=== PATIENT | female | born 1985 | race Caucasian/White ===

== ENCOUNTER 2021-08-10 12:41 | Outpatient (REF) | payer MEDICARE, SELFPAY ==
[2021-08-10 13:47] LABS: MANUAL DIFF FLAG NO
[2021-08-10 13:53] LABS: Basophils Absolute Auto 0.1 X10*3/uL (0.0-0.2); Basophils Percent Auto 0.7 % (0-2); Eosinophils Absolute Auto 0.3 X10*3/uL (0.0-0.4); Eosinophils Percent Auto 2.2 % (0-4); Hematocrit 41.7 % (37.0-47.0); Imm Gran Abs Auto 0.05 X10*3/uL (0.00-0.03); Imm Gran Pct Auto 0.4 % (0.0-0.4); Lymphocytes Absolute Auto 4.7 X10*3/uL (1.2-4.9); Lymphocytes Percent Auto 34.9 % (20-40); Mean Corpuscular HGB Conc 31.2 g/dl (31.0-35.0); Mean Corpuscular Hemoglobin 27.1 pg (27.0-33.0); Mean Corpuscular Volume 87.1 fL (80.0-98.0); Mean Platelet Volume 9.7 fL (9.4-12.3); Monocytes Absolute Auto 0.9 X10*3/uL (0.1-1.2); Monocytes Percent Auto 6.6 % (2-11); Neutrophils Absolute Auto 7.5 x10*3/uL (2.0-8.3); Neutrophils Percent Auto 55.2 % (45-73); Platelet Count 469 X10*3/uL (160-400); Red Blood Count 4.79 X10*6/uL (4.20-5.50); Red Cell Distribution Width 14.6 % (11.0-16.0); White Blood Count 13.6 X10*3/uL (4.8-10.8)
[2021-08-10 14:04] LABS: Alanine Aminotransferase 21 U/L (0-31); Albumin Level 4.6 g/dL (3.5-5.0); Alkaline Phosphatase 54 U/L (39-117); Anion Gap 14 (12-20); Aspartate Amino Transferase 22 U/L (5-31); Bilirubin Total 0.3 mg/dL (0.0-1.0); Blood Urea Nitrogen 15 mg/dL (9-16); Calcium 10.2 mg/dL (8.4-10.2); Carbon Dioxide 24 mmol/L (22-29); Chloride 105 mmol/L (96-108); Cholesterol 286 mg/dL; Estimated Glomerular Filt Rate > 60; Glucose Fasting 109 mg/dL (60-99); HDL Cholesterol 35 mg/dL; LDL Cholesterol Calculated 193 mg/dl; Potassium 4.8 mmol/L (3.3-5.1); Sodium 138 mmol/L (135-145); Triglycerides 290 mg/dL
[2021-08-10 14:25] LABS: Thyroid Stimulating Hormone 1.57 uIU/mL (0.32-4.0)
== END 2021-08-10 12:42 | disposition home or self-care (01) ==
LOC: HO.HMGCLDS 12:41
PROVIDERS: PCP Internal Medicine; Visit Provider Internal Medicine
DX: Z00.00 Encounter for general adult medical examination without abnormal findings (principal); E78.00 Pure hypercholesterolemia, unspecified; I10 Essential (primary) hypertension; Z72.0 Tobacco use
CPT/HCPCS: 36415; 80053; 80061; 84443; 85025

== ENCOUNTER → 2022-02-04 12:31 | Outpatient (BNVA) | payer MEDICARE, SELFPAY | PROVIDERS: PCP Internal Medicine; Visit Provider Physician Assistant | DX: G56.03 Carpal tunnel syndrome, bilateral upper limbs (principal) | CPT/HCPCS: 99202 ==

== ENCOUNTER 2022-04-10 10:21 | Outpatient (REF) | payer MEDICARE, SELFPAY ==
--- NOTE | 2022-04-10 12:11 | EMG_ITS ---
Please see scanned EMG / Nerve Conduction Report. MTDD
== END 2022-04-10 10:22 | disposition home or self-care (01) ==
LOC: HO.NEURO 10:21
PROVIDERS: PCP Internal Medicine; Visit Provider Physician Assistant
DX: R20.0 Anesthesia of skin (principal); R20.2 Paresthesia of skin
CPT/HCPCS: 95885; 95913

== ENCOUNTER 2022-07-29 10:51 | Outpatient (REF) | payer MEDICARE, SELFPAY ==
[2022-07-29 14:17] LABS: MANUAL DIFF FLAG NO
[2022-07-29 14:36] LABS: Basophils Absolute Auto 0.1 X10*3/uL (0.0-0.2); Basophils Percent Auto 0.9 % (0-2); Eosinophils Absolute Auto 0.3 X10*3/uL (0.0-0.4); Eosinophils Percent Auto 2.2 % (0-4); Hematocrit 38.1 % (37.0-47.0); Hemoglobin 11.9 g/dl (12.0-16.0); Imm Gran Abs Auto 0.06 X10*3/uL (0.00-0.03); Imm Gran Pct Auto 0.5 % (0.0-0.4); Lymphocytes Absolute Auto 3.8 X10*3/uL (1.2-4.9); Lymphocytes Percent Auto 29.5 % (20-40); Mean Corpuscular HGB Conc 31.2 g/dl (31.0-35.0); Mean Corpuscular Hemoglobin 27.7 pg (27.0-33.0); Mean Corpuscular Volume 88.8 fL (80.0-98.0); Mean Platelet Volume 10.4 fL (9.4-12.3); Monocytes Absolute Auto 0.8 X10*3/uL (0.1-1.2); Monocytes Percent Auto 6.4 % (2-11); Neutrophils Absolute Auto 7.8 x10*3/uL (2.0-8.3); Neutrophils Percent Auto 60.5 % (45-73); Platelet Count 443 X10*3/uL (160-400); Red Blood Count 4.29 X10*6/uL (4.20-5.50); Red Cell Distribution Width 14.8 % (11.0-16.0); White Blood Count 12.9 X10*3/uL (4.8-10.8)
[2022-07-29 14:52] LABS: Alanine Aminotransferase 12 U/L (0-31); Albumin Level 4.2 g/dL (3.5-5.0); Alkaline Phosphatase 48 U/L (39-117); Anion Gap 12 (12-20); Aspartate Amino Transferase 14 U/L (5-31); Bilirubin Total 0.2 mg/dL (0.0-1.0); Blood Urea Nitrogen 15 mg/dL (9-16); Calcium 9.1 mg/dL (8.4-10.2); Carbon Dioxide 24 mmol/L (22-29); Chloride 109 mmol/L (96-108); Cholesterol 108 mg/dL; Estimated Glomerular Filt Rate > 60; Glucose Random 142 mg/dL (60-115); HDL Cholesterol 30 mg/dL; LDL Cholesterol Calculated 63 mg/dl; Potassium 3.7 mmol/L (3.3-5.1); Sodium 141 mmol/L (135-145); Total Protein 6.6 g/dL (6.5-8.0); Triglycerides 77 mg/dL
[2022-07-29 15:31] LABS: Thyroid Stimulating Hormone 1.05 uIU/mL (0.32-4.0)
== END 2022-07-29 10:52 | disposition home or self-care (01) ==
LOC: HO.10HDL 10:51
PROVIDERS: Visit Provider Internal Medicine
DX: Z00.00 Encounter for general adult medical examination without abnormal findings (principal); E78.00 Pure hypercholesterolemia, unspecified; I10 Essential (primary) hypertension; J45.909 Unspecified asthma, uncomplicated
CPT/HCPCS: 36415; 80053; 80061; 84443; 85025

== ENCOUNTER 2023-03-05 11:28 | Outpatient (AMB) | payer MEDICARE, SELFPAY ==
--- NOTE | 2023-03-05 12:02 | MHC.OFFVIS ---
Intake Intake Visit Reasons: OV- EMG Review CTS B/L-Rescheduling Intake Note: Meliza 37 yr old right hand dominant presents today for her bilateral hand CTS. Last seen with Paul Pham who sent patient for an EMG study. Currently patient states she right is worse and would like to have surgery. Allergies No Known Allergies Allergy (Verified 03/05/23 12:04) HPI OV- EMG Review CTS B/L-Rescheduling HPI Details Meliza is a 37 year old right hand dominant woman who presents for a NCS review of her bilateral hand numbness. She complains of numbness in the thumb, index, and middle fingers bilaterally, R>L. She says this has worsened in the last several months. Symptoms intermittent, but daily, worse at night. 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 Review of Systems Const All systems reviewed & are unremarkable except as noted in HPI and below Physical Exam Const General: cooperative, healthy appearing and no acute distress Orientation/consciousness: patient oriented x3 HEENT Head: Yes normocephalic and Yes atraumatic Eyes EOM: EOMs intact bilaterally Resp Effort & Inspection: normal respiratory effort and able to speak in complete sentences Cardio Jugular venous distension: no JVD Skin General skin exam: turgor normal Rashes: no rashes Neuro General: patient oriented x3 Extrem Other: Evaluation of Bilateral Upper Extremity: The patient is alert, oriented, and in no acute distress Neuro: Decreased sensation in the median nerve distribution bilaterally. Normal sensation in the ulnar nerve distribution No thenar or intrinsic wasting Good APB muscle belly firing and good finger cross Vascular: Cap refill brisk ROM: She can make a fist and extend all her digits No locking or catching Skin: No lacerations or abrasions. General: No Ecchymosis. No Erythema or evidence of infection. Nerve Conduction study: Mild bilateral carpal tunnel syndrome Dr. Nichole 04/10/22 Psych Appearance: grossly normal Affect: normal affect Attitude: cooperative Assessment & Plan Assessment & Plan (1) Carpal tunnel syndrome on right: Code(s): G56.01 - Carpal tunnel syndrome, right upper limb (2) Carpal tunnel syndrome on left: Code(s): G56.02 - Carpal tunnel syndrome, left upper limb (3) Fibromyalgia: Code(s): M79.7 - Fibromyalgia Plan Assessment & Plan: 1. Right carpal tunnel syndrome, mild Symptoms intermittent, but daily, worse at night 2. Left carpal tunnel syndrome, mild Symptoms intermittent, but daily, worse at night I educated her about this condition I discussed operative and non-operative treatment options The patient would like to proceed with surgery, beginning with the right side She was fitted for bilateral wrist braces to wear at night The risks and benefits of operative treatment were discussed with the patient and the patient wishes to proceed with surgery. These risks include, but are not limited to risk of damage to blood vessels, nerves, tendons, infection, recurrence, incomplete relief of preoperative symptoms, persistent pain, possible need for further surgery and the risks associated with regional blocks and anesthesia. The plan is to take the patient to the operating room sometime in the next few weeks for the following procedures: 1. Right carpal tunnel release, under local All of the preoperative paperwork including the consent was filled out today. All the patient's questions were answered. The patient understands that they will be contacted by our complex care nurse practitioner soon to schedule this procedure She denies Diabetes, blood thinners, asthma, heart, lung, kidney issues Scribed for Jeri Lombardo MD by Micheal Malcolm medical review coordinator, on 03/05/23 at 12:10 PM, EST. Coding Level of Care Code Est Pt Level 4 (23200) Diagnoses Carpal tunnel syndrome on right G56.01 Carpal tunnel syndrome on left G56.02 Fibromyalgia M79.7
== END 2023-03-05 12:14 | disposition home or self-care (01) ==
PROVIDERS: PCP Internal Medicine; Visit Provider Orthopaedic Surgery
DX: G56.03 Carpal tunnel syndrome, bilateral upper limbs (principal); M79.7 Fibromyalgia
CPT/HCPCS: 99214

== ENCOUNTER → 2023-03-05 11:28 | Outpatient (BNVA) | payer MEDICARE, SELFPAY | PROVIDERS: PCP Internal Medicine; Visit Provider Orthopaedic Surgery | DX: G56.03 Carpal tunnel syndrome, bilateral upper limbs (principal); M79.7 Fibromyalgia | CPT/HCPCS: 99212 ==

== ENCOUNTER 2023-06-09 09:23 | Day surgery (SDC) | payer MEDICARE, MEDICAID, SELFPAY ==
[2023-06-09 10:13] VITALS: BMI 36.9
--- NOTE | 2023-06-09 11:09 | MHC.SHP ---
Pre-Procedural Eval Section A - 24 Hr Update-Section A only Date of Service: 06/09/23 The patient is an INPATIENT: No Changes since office visit: No Cold of Flu in the past 2 weeks, No New Medical Problems, No Changes in Medication and No Patient answered all questions The patient has been examined within 24 hours of the surgical procedure. The History & Physical has been completed within 30 days and I have reviewed it.: Yes Section B - Complete if H&P > 30 days Chief Complaint: Carpal tunnel syndrome, right upper limb Allergies: Allergies Allergy/AdvReac Type Severity Reaction Status Date / Time No Known Allergies Allergy Verified 03/05/23 12:04 Plan I have reviewed the history and physical and performed a pertinent physical examination on my patient. No changes have occurred unless specified. Time Spent With Patient Time: Total time managing care of this patient today ____ minutes.
--- NOTE | 2023-06-09 11:17 | W.PM.OPN ---
Operative Note Operative Note Date of Service: 06/09/23 Narrative: Preop diagnosis: 1. Right Carpal tunnel syndrome Postop diagnosis: same Procedure: 1. Right Carpal tunnel release Surgeon: Jeri Lombardo MD Anesthesia: local block using 1% lidocaine with epinephrine Findings: Thickened transverse carpal ligament. EBL: Less than 5 mL Specimens: None Complications: None Disposition: Brought to recovery room in stable condition Plan: Follow-up for 10-14 days for wound check and suture removal Indications: The patient is 37 years old, with right carpal tunnel syndrome that has been unresponsive to nonoperative management. The risks and benefits of operative treatment including but not limited to risk of damage to blood vessels, nerves, tendons, infection, persistent pain, persistent symptoms, or possible need for additional surgery were discussed with the patient and the patient wishes to proceed with surgery. Procedure: Once consent was obtained a local block was performed using a combination of 1% lidocaine with epinephrine. The patient was then brought back to the operating suite and placed on the operative table in supine position. The right upper extremity was prepped and draped in a standard surgical fashion. Once assured that we had a good block, a 2.0 cm longitudinal incision was made centered over the carpal tunnel. The incision was made through the skin to the subcutaneous tissues using a #15 blade. Dissection was made down to the level of the transverse carpal ligament with care being taken to protect the palmar cutaneous nerve. Once the transverse carpal ligament was clearly visualized, a longitudinal incision was made in the transverse carpal ligament 1st using a #15 blade, then using tenotomy scissors under direct visualization. Care was taken to look for and protect the motor branch of the median nerve when seen in this area. Once satisfied with our carpal tunnel release the wound was copiously irrigated with normal saline and hemostasis was obtained with a brief period of local pressure. The skin edges were reapproximated with some 5.0 nylon suture material and a sterile dressing was applied. The patient appears to have tolerated the procedure well and with no complications. All digits were well vascularized at the conclusion of the case.
[2023-06-09 12:41] VITALS: BP 107/57; PULSE 58; RESP 17; O2SAT 98
== END 2023-06-09 13:37 | disposition home or self-care (01) ==
PROVIDERS: PCP Internal Medicine; Visit Provider Orthopaedic Surgery
PROC: (CPT 64721; principal; 2023-06-09 10:30)
DX: G56.01 Carpal tunnel syndrome, right upper limb (principal); R20.0 Anesthesia of skin; M79.7 Fibromyalgia; E78.00 Pure hypercholesterolemia, unspecified; I10 Essential (primary) hypertension
CPT/HCPCS: 64721; J2795

== ENCOUNTER → 2023-06-09 09:23 | Outpatient (BNV) | payer MEDICARE, SELFPAY | PROVIDERS: PCP Internal Medicine; Visit Provider Orthopaedic Surgery | DX: G56.01 Carpal tunnel syndrome, right upper limb (principal) | CPT/HCPCS: 64721 ==

== ENCOUNTER 2023-06-24 11:29 | Outpatient (AMB) | payer MEDICARE, SELFPAY ==
[2023-06-24 11:44] VITALS: BMI 35.9
--- NOTE | 2023-06-24 11:44 | MHC.OFFVIS ---
Intake Vital Signs 06/24/23 11:44 Height 5 ft Weight 184 lb BMI 35.9 Intake Visit Reasons: PO-Rt CTR 06/09/23 Intake Note: Cece 37 yr old female presents today for her P/O visit for her right CTR from 06/09/23. States her symptoms are improving. Sutures removed and steri strips applied. Patient would also like to move forward with her left hand CTR. Allergies No Known Allergies Allergy (Verified 06/24/23 11:52) HPI PO-Rt CTR 06/09/23 HPI Details Meliza is a 37 year old right hand dominant woman who returns S/P right carpal tunnel release She says she is doing well and her sensation is much better. She said her left side is now bothering her more, especially at night. 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 Sutures removed and Steri-Strips applied She can make a fist and extend all her digits bilaterally Sensation is intact to the tips of all digits bilaterally Cap refill is brisk Nerve Conduction study: Mild bilateral carpal tunnel syndrome Dr. Nichole 04/10/22 Psych Appearance: grossly normal Affect: normal affect Attitude: cooperative Assessment & Plan Assessment & Plan (1) Carpal tunnel syndrome on right: Code(s): G56.01 - Carpal tunnel syndrome, right upper limb (2) Carpal tunnel syndrome on left: Code(s): G56.02 - Carpal tunnel syndrome, left upper limb (3) Fibromyalgia: Code(s): M79.7 - Fibromyalgia Plan Assessment & Plan: 1. Right carpal tunnel syndrome, S/P release DOS: 06/09/23 Pre-operative symptoms intermittent, but daily, worse at night Now with normal sensation The patient appears to be doing well post-operatively I educated her about the post-operative course I explained the signs and symptoms of infection, I discussed activity modifications, she is to lift nothing heavier than a cellphone for the next two weeks She will perform gentle ROM exercises at home She should gently massage about the incision site to reduce the risk of hypersensitivity She was given a note for work restricting her to light duty with a 2lb weight limit with her right hand for 2 weeks. She can return to full duty effective 07/07/23. She can follow up prn 2. Left carpal tunnel syndrome, mild Symptoms intermittent, but daily, worse at night I educated her about this condition I discussed operative and non-operative treatment options The patient would like to proceed with surgery The risks and benefits of operative treatment were discussed with the patient and the patient wishes to proceed with surgery. These risks include, but are not limited to risk of damage to blood vessels, nerves, tendons, infection, recurrence, incomplete relief of preoperative symptoms, persistent pain, possible need for further surgery and the risks associated with regional blocks and anesthesia. The plan is to take the patient to the operating room sometime in the next few months for the following procedures: 1. Left carpal tunnel release, under local All of the preoperative paperwork including the consent was reviewed today. All the patient's questions were answered. The patient understands that they will be contacted by our food order expediter soon to schedule this procedure She denies Diabetes, blood thinners, asthma, heart, lung, kidney issues Scribed for Jeri Lombardo MD by Micheal Malcolm, senior medical writer, on 06/24/23 at 11:55 AM, EST. Coding Level of Care Code Est Pt Level 4 (55248) Diagnoses Carpal tunnel syndrome on right G56.01 Carpal tunnel syndrome on left G56.02 Fibromyalgia M79.7
== END 2023-06-24 12:06 | disposition home or self-care (01) ==
PROVIDERS: PCP Internal Medicine; Visit Provider Orthopaedic Surgery
DX: G56.03 Carpal tunnel syndrome, bilateral upper limbs (principal); M79.7 Fibromyalgia
CPT/HCPCS: 99024

== ENCOUNTER → 2023-06-24 11:29 | Outpatient (BNVA) | payer MEDICARE, SELFPAY | PROVIDERS: PCP Internal Medicine; Visit Provider Orthopaedic Surgery | DX: Z48.02 Encounter for removal of sutures (principal); G56.03 Carpal tunnel syndrome, bilateral upper limbs; M79.7 Fibromyalgia | CPT/HCPCS: 99212 ==

== ENCOUNTER 2023-08-25 12:07 | Day surgery (SDC) | payer MEDICARE, MEDICAID, SELFPAY ==
[2023-08-25 12:30] VITALS: BP 120/71; PULSE 91; RESP 18; TEMP 36.8; O2SAT 98; BMI 37.1
--- NOTE | 2023-08-25 12:48 | MHC.SHP ---
Pre-Procedural Eval Section A - 24 Hr Update-Section A only Date of Service: 08/25/23 The patient is an INPATIENT: No Changes since office visit: No Cold of Flu in the past 2 weeks, No New Medical Problems, No Changes in Medication and No Patient answered all questions The patient has been examined within 24 hours of the surgical procedure. The History & Physical has been completed within 30 days and I have reviewed it.: Yes Section B - Complete if H&P > 30 days Chief Complaint: Carpal tunnel syndrome, left upper limb Allergies: Allergies Allergy/AdvReac Type Severity Reaction Status Date / Time No Known Allergies Allergy Verified 08/25/23 12:33 Exam Exam Comment: Left carpal tunnel syndrome Plan Diagnosis/Plan: Unchanged I have reviewed the history and physical and performed a pertinent physical examination on my patient. No changes have occurred unless specified. Time Spent With Patient Time: Total time managing care of this patient today ____ minutes.
--- NOTE | 2023-08-25 12:48 | W.PM.OPN ---
Operative Note Operative Note Date of Service: 08/25/23 Narrative: Preop diagnosis: 1. Left Carpal tunnel syndrome Postop diagnosis: same Procedure: 1. Left Carpal tunnel release Surgeon: Jeri Lombardo MD Anesthesia: local block using 1% lidocaine with epinephrine Findings: Thickened transverse carpal ligament. EBL: Less than 5 mL Specimens: None Complications: None Disposition: Brought to recovery room in stable condition Plan: Follow-up for 10-14 days for wound check and suture removal Indications: The patient is 37 years old, with left carpal tunnel syndrome that has been unresponsive to nonoperative management. The risks and benefits of operative treatment including but not limited to risk of damage to blood vessels, nerves, tendons, infection, persistent pain, persistent symptoms, or possible need for additional surgery were discussed with the patient and the patient wishes to proceed with surgery. Procedure: Once consent was obtained a local block was performed using a combination of 1% lidocaine with epinephrine. The patient was then brought back to the operating suite and placed on the operative table in supine position. The left upper extremity was prepped and draped in a standard surgical fashion. Once assured that we had a good block, a 2.0 cm longitudinal incision was made centered over the carpal tunnel. The incision was made through the skin to the subcutaneous tissues using a #15 blade. Dissection was made down to the level of the transverse carpal ligament with care being taken to protect the palmar cutaneous nerve. Once the transverse carpal ligament was clearly visualized, a longitudinal incision was made in the transverse carpal ligament 1st using a #15 blade, then using tenotomy scissors under direct visualization. Care was taken to look for and protect the motor branch of the median nerve when seen in this area. Once satisfied with our carpal tunnel release the wound was copiously irrigated with normal saline and hemostasis was obtained with a brief period of local pressure. The skin edges were reapproximated with some 5.0 nylon suture material and a sterile dressing was applied. The patient appears to have tolerated the procedure well and with no complications. All digits were well vascularized at the conclusion of the case.
[2023-08-25 15:05] VITALS: BP 118/62; PULSE 58; RESP 12; O2SAT 98
== END 2023-08-25 15:08 | disposition home or self-care (01) ==
PROVIDERS: PCP Internal Medicine; Visit Provider Orthopaedic Surgery
PROC: (CPT 64721; principal; 2023-08-25 12:50)
DX: G56.02 Carpal tunnel syndrome, left upper limb (principal); M79.7 Fibromyalgia; I10 Essential (primary) hypertension; E78.00 Pure hypercholesterolemia, unspecified; Z98.890 Other specified postprocedural states
CPT/HCPCS: 64721; J0171

== ENCOUNTER → 2023-08-25 12:07 | Outpatient (BNV) | payer MEDICARE, SELFPAY | PROVIDERS: PCP Internal Medicine; Visit Provider Orthopaedic Surgery | DX: G56.02 Carpal tunnel syndrome, left upper limb (principal) | CPT/HCPCS: 64721 ==

== ENCOUNTER 2023-09-09 10:28 | Outpatient (AMB) | payer MEDICARE, SELFPAY ==
[2023-09-09 10:40] VITALS: BMI 37.1
--- NOTE | 2023-09-09 10:40 | A.OFFVIS_ITS ---
Vital Signs 09/09/23 10:40 Height 5 ft Weight 190 lb BMI 37.1 Intake Visit Reasons: PO-Lt CTR 08/25/23 Intake Note: Meliza a 37 year old female presents today for her post operative visit s/p left CTR on 08/25/23. Patient reports she is doing well however a few days ago she noticed a milky colored discharge from her incision site. States keeping hand clean and dry. Her numbness and tingling has subsided. Sutures removed and steri strips applied. Allergies No Known Allergies Allergy (Verified 09/09/23 10:49) HPI HPI PO-Lt CTR 08/25/23: Details: Meliza is a 37 year old right hand dominant woman who returns S/P left carpal tunnel release, DOS: 08/25/23 She says she is doing well and her sensation is much better. She did notice some milky colored discharge from her incision a few days ago. She says she has been keeping her incision clean & dry, and she has been cleaning her incision with alcohol at home. 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 Sutures removed and Steri-Strips applied Minimal tenderness consistent with normal healing She can make a fist and extend all her digits Sensation is intact to the tips of all digits Cap refill is brisk Nerve Conduction study: Mild bilateral carpal tunnel syndrome Dr. Nichole 04/10/22 Psych Appearance: grossly normal Affect: normal affect Attitude: cooperative Assessment & Plan Assessment & Plan (1) Carpal tunnel syndrome on left: Code(s): G56.02 - Carpal tunnel syndrome, left upper limb Category: Medical (2) Carpal tunnel syndrome on right: Code(s): G56.01 - Carpal tunnel syndrome, right upper limb Category: Medical (3) Fibromyalgia: Code(s): M79.7 - Fibromyalgia Category: Medical Plan Assessment & Plan: 1. Left carpal tunnel syndrome, S/P release DOS: 08/25/23 Pre-operative symptoms intermittent, but daily, worse at night Now with normal sensation The patient appears to be doing well post-operatively I educated her about the post-operative course I explained the signs and symptoms of infection, if the patient develops any new or worsening erythema, drainage, pain, or warmth they should contact the clinic or attend the ED. She had an incident of milky discharge a few days ago from her incision. She has no discharge today, with no pain or erythema. I discussed activity modifications, she is to lift nothing heavier than a cellphone for the next two weeks She will perform gentle ROM exercises at home She should gently massage about the incision site to reduce the risk of hypersensitivity She was given a note for work restricting her to light duty with a 2lb weight limit with her left hand until 09/29/23. She will then return to full duty without restrictions. She can follow up prn 2. Right carpal tunnel syndrome, S/P release DOS: 06/09/23 Pre-operative symptoms intermittent, but daily, worse at night Now with normal sensation Scribed for Jeri Lombardo MD by Micheal Malcolm medical research assistant, on 09/09/23 at 11:00 AM, EST. Coding Level of Care Code Global (75306) Diagnoses Carpal tunnel syndrome on left G56.02 Carpal tunnel syndrome on right G56.01 Fibromyalgia M79.7
== END 2023-09-09 11:24 | disposition home or self-care (01) ==
PROVIDERS: PCP Internal Medicine; Visit Provider Orthopaedic Surgery
DX: G56.03 Carpal tunnel syndrome, bilateral upper limbs (principal); M79.7 Fibromyalgia
CPT/HCPCS: 99024

== ENCOUNTER → 2023-09-09 10:28 | Outpatient (BNVA) | payer MEDICARE, SELFPAY | PROVIDERS: PCP Internal Medicine; Visit Provider Orthopaedic Surgery | DX: Z48.811 Encounter for surgical aftercare following surgery on the nervous system (principal) | CPT/HCPCS: 99212 ==

== ENCOUNTER 2023-09-24 10:31 | Outpatient (REF) | payer MEDICARE, SELFPAY ==
[2023-09-24 11:37] LABS: MANUAL DIFF FLAG NO
[2023-09-24 11:42] LABS: Basophils Absolute Auto 0.1 X10*3/uL (0.0-0.2); Basophils Percent Auto 0.5 % (0-2); Eosinophils Absolute Auto 0.1 X10*3/uL (0.0-0.4); Eosinophils Percent Auto 0.4 % (0-4); Hematocrit 37.7 % (37.0-47.0); Hemoglobin 12.3 g/dl (12.0-16.0); Imm Gran Abs Auto 0.04 X10*3/uL (0.00-0.03); Imm Gran Pct Auto 0.3 % (0.0-0.4); Mean Corpuscular HGB Conc 32.6 g/dl (31.0-35.0); Mean Corpuscular Hemoglobin 28.1 pg (27.0-33.0); Mean Corpuscular Volume 86.1 fL (80.0-98.0); Monocytes Absolute Auto 0.5 X10*3/uL (0.1-1.2); Monocytes Percent Auto 4.2 % (2-11); Neutrophils Absolute Auto 8.3 x10*3/uL (2.0-8.3); Neutrophils Percent Auto 69.6 % (45-73); Platelet Count 381 X10*3/uL (160-400); Red Blood Count 4.38 X10*6/uL (4.20-5.50); Red Cell Distribution Width 13.8 % (11.0-16.0)
[2023-09-24 11:46] LABS: Estimated Average Glucose 117 mg/dL; Hemoglobin A1c % 5.7 % (<6.0)
[2023-09-24 12:09] LABS: Alanine Aminotransferase 15 U/L (0-31); Albumin Level 4.6 g/dL (3.5-5.0); Alkaline Phosphatase 46 U/L (39-117); Anion Gap 11 (12-20); Aspartate Amino Transferase 17 U/L (5-31); Bilirubin Total 0.7 mg/dL (0.0-1.0); Blood Urea Nitrogen 13 mg/dL (9-16); Calcium 9.4 mg/dL (8.4-10.2); Carbon Dioxide 22 mmol/L (22-29); Chloride 111 mmol/L (96-108); Cholesterol 144 mg/dL (<200); Estimated Glomerular Filt Rate > 60; Glucose Random 135 mg/dL (60-115); HDL Cholesterol 41 mg/dL (>40); LDL Cholesterol Calculated 91 mg/dL (<100); Potassium 3.4 mmol/L (3.3-5.1); Sodium 141 mmol/L (135-145); Triglycerides 62 mg/dL (<150)
[2023-09-24 12:25] LABS: Ferritin 7 ng/mL (10-122)
== END 2023-09-24 10:32 | disposition home or self-care (01) ==
LOC: HO.10HDL 10:31
PROVIDERS: Visit Provider Internal Medicine
DX: Z00.00 Encounter for general adult medical examination without abnormal findings (principal); I10 Essential (primary) hypertension; F32.2 Major depressive disorder, single episode, severe without psychotic features; F12.988 Cannabis use, unspecified with other cannabis-induced disorder; E78.00 Pure hypercholesterolemia, unspecified; Z13.1 Encounter for screening for diabetes mellitus; Z13.89 Encounter for screening for other disorder
CPT/HCPCS: 36415; 80053; 80061; 82728; 83036; 85025

== ENCOUNTER 2024-03-09 12:33 | Outpatient (AMB) | payer MEDICARE, SELFPAY ==
[2024-03-09 12:46] VITALS: BMI 37.1
--- NOTE | 2024-03-09 12:46 | A.OFFVIS_ITS ---
Vital Signs 03/09/24 12:46 Height 5 ft Weight 190 lb BMI 37.1 Intake Visit Reasons: OV-B/L hand Limited ROM/numbness, tingling Intake Note: Meliza is a 38 year old right hand dominant female who presents today for a follow up visit for left hand limited ROM with her thumb. She is S/P Left carpal tunnel release, DOS: 08/25/23, S/p Right carpal tunnel syndrome, DOS: 06/09/23. States her numbness and tingling have improved significantly since surgery. She is now having left hand thumb pain( base of joint) . States she has soreness, difficulty grabbing and pinching. NO past injection or injury. 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 No recent xrays done. Allergies No Known Allergies Allergy (Verified 03/09/24 12:54) HPI HPI OV-B/L hand Limited ROM/numbness, tingling: Details: Meliza is a 38 year old right hand dominant woman who returns with complaints of new left thumb pain. She complains of pain at the base of her left thumb, worse with pinching & gripping activities. She also says her skin is very sensitive and is painful to the touch. She has a Hx of bilateral carpal tunnel releases, and says her sensation is now normal to the tips of her fingers, but she says she has occasional tingling to the tip of her left thumb. She also complains of a painful burning sensation over the dorsal aspect of her right hand MCP joints She has Fibromyalgia. 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 Review of Systems Const All systems reviewed & are unremarkable except as noted in HPI and below Physical Exam Vital Signs: BMI result Body Mass Index 37.1 Const General: no acute distress and alert Orientation/consciousness: patient oriented x3 Neuro General: patient oriented x3 Extrem Other: Evaluation of Bilateral Upper Extremity: The patient is alert, oriented, and in no acute distress Neuro: Median, Ulnar, Radial nerves motor and sensory intact and sensation is normal to the tips of all digits, except for some numbness to the tip of the left thumb Vascular: Cap refill brisk ROM: She can make a fist and extend all her digits No locking or catching of the left thumb She complains of pain to the thenar aspect & volar aspect of the thumb MCP joint mild hypersenstivity over the carpal tunnel incision and thenar mass of the left thumb Most tender over the thumb a1 sara She is also tender along the flexor tendon, deep within the thenar mass No tenderness over the 1st dorsal compartment Tender over the radial basal joint The skin over the thenar mass has normal sensation, ust hypersensitivity Right hand: She complains of a burning sensation to light touch over the MCP joints of her fingers Normal sensation otherwise to the dorsal aspect of the hand No swelling or erythema Normal ROM Psych Appearance: grossly normal Affect: normal affect Attitude: cooperative Assessment & Plan Assessment & Plan (1) Left hand pain: Code(s): M79.642 - Pain in left hand Category: Medical (2) Hypersensitivity: Code(s): T78.40XA - Allergy, unspecified, initial encounter Category: Medical (3) Fibromyalgia: Code(s): M79.7 - Fibromyalgia Category: Medical Plan Assessment & Plan: 1. Left thumb pain & tenderness over the a1 sara No locking or catching 2. Left hand hypersensitivity Over the carpal tunnel incision & thenar mass Of note, she does have Fibromyalgia I educated her about these conditions I discussed activity modification, she should touch & massage about the base of her thumb in order to reduce her hypersensitivity I ordered OT hand therapy to work on desensitiation, stretching, & ROM She can follow up prn, at least 6-8 weels 3. Right hand episodes of pain over the dorsal aspect of the MCP joints Etiology unclear No swelling or erythema 4. Left carpal tunnel syndrome, S/P release DOS: 08/25/23 Pre-operative symptoms intermittent, but daily, worse at night Now with normal sensation 5. Right carpal tunnel syndrome, S/P release DOS: 06/09/23 Pre-operative symptoms intermittent, but daily, worse at night Now with normal sensation to the tips of her fingers Scribed for Jeri Lombardo MD by Micheal Malcolm, medical territory manager, on 03/09/24 at 1:05 PM, EST. Orders: Orders OT Evaluation and Treatment Today M79.642 - Pain in left hand, T78.40XA - Allergy, unspecified, initial encounter Scribe Plan - Not visible on output: Scribed for Jeri Lombardo MD by Micheal Malcolm, medical territory manager, on [ ] at [ ], EST. Coding Level of Care Code Est Pt Level 4 (80463) Diagnoses Left hand pain M79.642 Hypersensitivity T78.40XA Fibromyalgia M79.7
== END 2024-03-09 13:21 | disposition home or self-care (01) ==
PROVIDERS: PCP Internal Medicine; Visit Provider Orthopaedic Surgery
DX: M79.642 Pain in left hand (principal); T78.40XA Allergy, unspecified, initial encounter; M79.7 Fibromyalgia
CPT/HCPCS: 99214

== ENCOUNTER → 2024-03-09 12:33 | Outpatient (BNVA) | payer MEDICARE, SELFPAY | PROVIDERS: PCP Internal Medicine; Visit Provider Orthopaedic Surgery | DX: M79.642 Pain in left hand (principal); M79.641 Pain in right hand; M79.7 Fibromyalgia; R20.0 Anesthesia of skin; R20.2 Paresthesia of skin; T78.40XA Allergy, unspecified, initial encounter; Z98.890 Other specified postprocedural states | CPT/HCPCS: 99212 ==

== ENCOUNTER 2024-03-23 11:28 | Outpatient (AMB) | payer MEDICARE, SELFPAY ==
--- NOTE | 2024-03-23 11:47 | MHC.OFFVIS ---
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 it started few months ago and is getting worse no other associated symptoms. 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 Female Reproductive History Menstrual Date of last menstrual period: 03/21/24 Review of Systems Const All systems reviewed & are unremarkable except as noted in HPI and below Card Reports as per HPI Resp Reports as per HPI GI Reports as per HPI and Reports no additional complaints Reports as per HPI Physical Exam Const General: cooperative, healthy appearing and comfortable Chest Chest palpation & inspection: normal inspection of the chest and normal palpation of entire chest wall Breast/axilla inspection: normal inspection of the breasts and normal inspection of the axillae Breast/axilla palpation: normal palpation of the breasts, normal palpation of the axillae and no axillary lymphadenopathy Resp Effort & Inspection: normal respiratory effort Auscultation: clear to auscultation bilaterally Percussion: percussion normal Cardio Palpation: normal PMI Rate: regular rate Rhythm: regular rhythm Heart sounds: no murmurs and no rubs Peripheral pulses: Peripheral pulses 2+ throughout GI Inspection: Yes normal to inspection Palpation (GI): Soft to palpation, nontender, no guarding, not rigid and No hepatosplenomegaly present Percussion: Yes normal to percussion Auscultation: normal bowel sounds Rectal Exam - Female: deferred General: Yes bladder normal to palpation External Female Exam: No lesion Speculum Exam - Vagina: normal appearance of the vagina, normal palpation, normal vaginal discharge and not erythematous Speculum Exam - Cervix: normal appearance of the cervix and normal palpation Bimanual exam- vagina & uterus: normal bimanual exam, normal palpation, uterine size normal, bladder normal to palpation, consistency normal and normal palpation Bimanual Exam- Adnexa, other: normal adnexae, no masses and no tenderness Assessment & Plan Assessment & Plan (1) Abnormal uterine bleeding (AUB): Code(s): N93.9 - Abnormal uterine and vaginal bleeding, unspecified Category: Medical Plan: Co testing done, GC and chlamydia taken CBC, TSH, prolactin, HCG, and pelvic ultrasound ordered. Discussed with the patient the different causes of abnormal bleeding including thyroid disorders, uterine and ovarian pathology, endometrial hyperplasia, carcinoma and other potential causes. Discussed with the patient the work up including CBC (to r/o anemia), TSH, prolactin, pelvic Ultrasound, endometrial biopsy to r/o endometrial pathology. All questions answered and the patient verbalized understanding. Instructed the patient to schedule an appointment for an endometrial biopsy in 2 weeks. Orders: Orders Complete Blood Count no Diff Today N93.9 - Abnormal uterine and vaginal bleeding, unspecified US pelvic and transvaginal Today N93.9 - Abnormal uterine and vaginal bleeding, unspecified TSH reflex Free T4 Today N93.9 - Abnormal uterine and vaginal bleeding, unspecified HCG Quantitative Today N93.9 - Abnormal uterine and vaginal bleeding, unspecified Coding Level of Care Code New Pt Level 3 (69755) Diagnoses Abnormal uterine bleeding (AUB) N93.9
== END 2024-03-23 12:00 | disposition home or self-care (01) ==
PROVIDERS: PCP Internal Medicine; Visit Provider Obstetrics & Gynecology
DX: N93.9 Abnormal uterine and vaginal bleeding, unspecified (principal)
CPT/HCPCS: 99203

== ENCOUNTER 2024-03-23 11:28 | Outpatient (REF) | payer MEDICARE, SELFPAY ==
[2024-03-24 11:10] LABS: HPV 16,18/45 See PAP report
[2024-03-24 12:02] LABS: CT PCR NOT DETECTED (Not Detect.); NG PCR NOT DETECTED (Not Detect.)
== END 2024-03-23 11:29 | disposition home or self-care (01) ==
LOC: HO.LNP 11:28
PROVIDERS: PCP Internal Medicine; Visit Provider Obstetrics & Gynecology
DX: N93.9 Abnormal uterine and vaginal bleeding, unspecified (principal)
CPT/HCPCS: 87491; 87591; 87624; 88175; 99202

== ENCOUNTER 2024-04-06 13:44 | Outpatient (REF) | payer MEDICARE, SELFPAY ==
--- NOTE | ~2024-04-06 | US_ITS ---
CLINICAL HISTORY: N93.9 - Abnormal uterine and vaginal bleeding, unspecified US pelvis transabdominal and transvaginal with color and duplex Doppler Comparison: None Findings: Transabdominal scanning performed for overall anatomy. Transvaginal scanning performed for additional detail. LMP: Two weeks ago Anteverted uterus, normal size and echotexture, measuring 11.3 x 3.2 x 3.5 cm. Well defined endometrium, measuring 4.0 mm in thickness. The right ovary measures, 3.4 x 1.6 x 1.6 cm. Normal sonographic appearance right ovary. The left ovary measures, 4.1 x 3.1 x 4.6 cm. Probable hemorrhagic cyst measuring 3.3 x 2.6 x 2.4 cm. Normal color Doppler with normal ovarian arterial spectral tracing. No adnexal masses or fluid collections. No free fluid Impression: 1. Normal uterus. 2. Normal thickness endometrium homogeneous and well-defined. 3. Normal sonographic appearance right ovary. 4. Probable hemorrhagic cyst left ovary. Consider follow-up ultrasound in 6 or 12 weeks time. This document has been electronically signed by: Jose A Clark MD on 04/07/2024 09:50:44
== END 2024-04-06 13:45 | disposition home or self-care (01) ==
LOC: HO.US 13:44
PROVIDERS: PCP Internal Medicine; Visit Provider Obstetrics & Gynecology
DX: N93.9 Abnormal uterine and vaginal bleeding, unspecified (principal)
CPT/HCPCS: 76830; 76856

== ENCOUNTER → 2024-04-06 13:47 | Outpatient (BNV) | payer MEDICARE, SELFPAY | PROVIDERS: PCP Internal Medicine; Visit Provider Radiology Diagnostic Radiology | DX: N83.292 Other ovarian cyst, left side (principal); N93.9 Abnormal uterine and vaginal bleeding, unspecified | CPT/HCPCS: 76830; 76856 ==

== ENCOUNTER 2024-05-07 11:29 | Outpatient (RCR) | payer MEDICARE, SELFPAY ==
--- NOTE | 2024-04-23 11:05 | MHC.OT.EP ---
[address] [phone] Occupational Therapy Plan of Care Patient Name: Meliza Lockhart Date of Evaluation: 04/23/24 Diagnosis: L hand pain Pain Location: 0/10 at rest Pain Score: 6 Pain Scale Used: Numeric (0 - 10) Aggravating Factors: repetitive movements Alleviating Factors: Rest periods Assessment: Pt is a 38 yr. old R hand dominant female who had CTR surgery on her L wrist in 08/2023. She continues to report pain in her L had/ wrist due to jamming it shortly after her surgery. She reports falling and using her L hand to catch her fall at the end of November. 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 She has recently noted/ reported triggering of her L thumb and it gets stuck w/ overuse. She presents today w/ pain and limited ROM (flex/ ext, abduction) of her thumb as well as weakness of head scorer, and a triggering effect She saw the MD who referred her to skilled OT therapy for increased pain free ROM, strength, and functional use of her L hand/ thumb. Frequency and Duration: The patient will be seen 1x a week for 4 weeks Short Term Goals: see below Group Home Goals: Pt will be compliant w/ orthoses wear/care Pt will be able to PAIN FREE oppose the distal tip of her thumb to the base of her SF Pt will be complaint w/ joint protection techniques Pt will deny triggering of her L thumb Treatment Plan: Therapeutic Exercise Therapeutic Activity Home Exercise Program Splinting Neuro Re-ed Patient Education Desensitization/Sensory Re-ed Edema Control ADL Training Ultrasound NMES Iontophoresis Paraffin Fluidotherapy MHP Cold Packs Joint Mobilization Soft Tissue Mobilization Kinesiotaping Other (see comments) Electronically Signed By: Sharon Madrigal OTR/L Please Sign and return to therapist. Thank you once again for your referral.
== END 2024-07-09 14:47 | disposition home or self-care (01) ==
LOC: HO.OT 11:29
PROVIDERS: PCP Internal Medicine; Visit Provider Orthopaedic Surgery
DX: M79.642 Pain in left hand (principal)
CPT/HCPCS: 29130; 97110; 97140; 97165; 97535; 97760

== ENCOUNTER 2024-05-19 08:37 | Outpatient (AMB) | payer MEDICARE, SELFPAY ==
[2024-05-19 08:48] VITALS: BMI 37.1
--- NOTE | 2024-05-19 08:48 | A.OFFVIS_ITS ---
Vital Signs 05/19/24 08:48 Height 5 ft Weight 190 lb BMI 37.1 Intake Visit Reasons: OV-LT thumb pain decrease ROM Intake Note: Meliza is a 38 year old right hand dominant female who presents today for a follow up visit for left hand limited ROM with her thumb. She is S/P Left carpal tunnel release, DOS: 08/25/23, S/p Right carpal tunnel syndrome, DOS: 06/09/23. States she was improving and doing well with O.T however she woke up and felt her thumb snap/pop. Its has been snapping since if she doesn't wear her splint. Allergies No Known Allergies Allergy (Verified 05/19/24 08:59) HPI HPI OV-LT thumb pain decrease ROM: Details: Meliza is a 38 year old right hand dominant woman who returns with complaints of left thumb pain. She complains of pain at the base of her left thumb, worse with pinching & gripping activities. She also says her skin is very sensitive and is painful to the touch. She says in the last few days her thumb has been snapping & popping , and the only relief she has is when wearing her splint. She has found some improvement in her hypersensitivity from attending OT, she has one more session later today scheduled. 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 She says her duties are often difficult for her due to her pain. She has a Hx of bilateral carpal tunnel releases. She has Fibromyalgia. 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 Physical Exam Vital Signs: BMI result Body Mass Index 37.1 Const General: no acute distress and alert Orientation/consciousness: patient oriented x3 Neuro General: patient oriented x3 Extrem Other: Evaluation of Left Upper Extremity: The patient is alert, oriented, and in no acute distress Neuro: Median, Ulnar, Radial nerves motor and sensory intact and sensation is normal to the tips of all digits, except for some numbness to the tip of the left thumb Vascular: Cap refill brisk ROM: She can make a fist and extend all her digits Most tender over the left thumb a1 sara Visible and palpable locking & catching of the left thumb. Mild hypersenstivity over the carpal tunnel incision No tenderness over the 1st dorsal compartment Psych Appearance: grossly normal Affect: normal affect Attitude: cooperative Assessment & Plan Assessment & Plan (1) Trigger thumb, left thumb: Code(s): M65.312 - Trigger thumb, left thumb Category: Medical (2) Left hand pain: Code(s): M79.642 - Pain in left hand Category: Medical (3) Hypersensitivity: Code(s): T78.40XA - Allergy, unspecified, initial encounter Category: Medical (4) Fibromyalgia: Code(s): M79.7 - Fibromyalgia Category: Medical Plan Assessment & Plan: 1. Left trigger thumb I educated her about this condition I discussed operative and non-operative treatment options The patient would like to proceed with surgery The risks and benefits of operative treatment were discussed with the patient and the patient wishes to proceed with surgery. These risks include, but are not limited to risk of damage to blood vessels, nerves, tendons, infection, recurrence, incomplete relief of preoperative symptoms, persistent pain, pos sible need for further surgery and the risks associated with regional blocks and anesthesia. The plan is to take the patient to the operating room sometime in the next few weeks for the following procedures: 1. Left trigger thumb release, under local All of the preoperative paperwork including the consent was reviewed today. All the patient's questions were answered. 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 She was given a note to return to work on full duty, allowed to wear her splint at work. 2. Left hand hypersensitivity Over the carpal tunnel incision Of note, she does have Fibromyalgia I educated her about these conditions She has improved somewhat with OT hand therapy I discussed activity modification, she should touch & massage about the base of her thumb in order to reduce her hypersensitivity She will continue to attend OT hand therapy to work on desensitization, stretching, & ROM 3. Right hand episodes of pain over the dorsal aspect of the MCP joints Etiology unclear No swelling or erythema 4. Left carpal tunnel syndrome, S/P release DOS: 08/25/23 Pre-operative symptoms intermittent, but daily, worse at night Now with normal sensation 5. Right carpal tunnel syndrome, S/P release DOS: 06/09/23 Pre-operative symptoms intermittent, but daily, worse at night Now with normal sensation to the tips of her fingers Scribed for Jeri Lombardo MD by Micheal Malcolm, biomedical repair technician, on 05/19/24 at 9:10 AM, EST. Orders: Orders XR hand LT min 3V Today M79.642 - Pain in left hand Scribe Plan - Not visible on output: Scribed for Jeri Lombardo MD by Micheal Malcolm, biomedical repair technician, on [ ] at [ ], EST. Coding Level of Care Code Est Pt Level 4 (57351) Diagnoses Trigger thumb, left thumb M65.312 Left hand pain M79.642 Hypersensitivity T78.40XA Fibromyalgia M79.7
--- OUTSIDE RECORDS SUMMARY | 2024-05-19 09:28 | XMS_ITS | Clinical Summary ---
Author Organization [facility] ity Address [address] [place] [address] Care Team Providers Care Computer Software Engineer Name Role Phone Verito Gaytan MD Primary Care Provider [phone] Surgical History Surgery Date Site/Laterality Comments SECTION PROCEDURE: [place] DELIVERY ONLY Medical History Medical History Date Comments Abnormal Pap smear of cervix DX: Abnormal Pap smear of cervix Family History Medical History Relation Name Comments Other: Autism Daughter 1 Brain cancer Father Lung cancer Father Relation Name Status Comments Daughter 1 Alive Daughter 2 Alive Father Mother Alive Social History Tobacco Use Types Packs/Day Years Used Date Smoking Tobacco: Every Day Cigarettes Smokeless Tobacco: Never Comments Unknown Sex and Gender Information Value Date Recorded Sex Assigned at Not on file Legal Sex Female 4:23 PM EST Gender Identity Not on file Sexual Orientation Not on file Obstetrics History Last Filed Vital Signs Vital Sign Reading Time Taken Comments Blood Pressure 138/61 11/29/2021 2:04 PM EDT Pulse 101 11/29/2021 2:04 PM EDT Temperature - - Respiratory Rate - - Oxygen Saturation - - Inhaled Oxygen Concentration - - Weight 108 kg (238 lb) 11/29/2021 2:04 PM EDT Height 152.4 cm (5') 11/29/2021 2:04 PM EDT Body Mass Index 46.48 11/29/2021 2:04 PM EDT Plan of Treatment Health Maintenance Due Date Last Done Comments DTaP,Tdap,and Td Vaccines (1 - Tdap) 10/07/2003 Hepatitis B Vaccines (1 of 3 - 19+ 3-dose series) 10/07/2003 Pneumococcal Vaccine: Pediat rics (0 to 5 Years) and At-Risk Patients (6 to 64 Years) (1 of 2 - PCV) 10/07/2003 Cervical Cancer Screening: P ap Smear 2005 Cholesterol Screening (Lipid Panel) 03/06/2022 Depression Screening 03/06/2022 HIV Screening 03/06/2022 Hepatitis C Screening 03/06/2022 Social Influencers of Health Screening 03/06/2022 COVID-19 Vaccine ( - 2023-2 5 season) 2023 Influenza Vaccine (#1) 2023 HIB Vaccines Aged Out No longer eligi ble based on patient's age to complete this topic HPV Vaccines Aged Out No longer eligi ble based on patient's age to complete this topic Hepatitis A Vaccines Aged Out No long er eligible based on patient's age to complete this topic IPV Vaccines Aged Out No longer eligi ble based on patient's age to complete this topic MMR Vaccines Aged Out No longer eligi ble based on patient's age to complete this topic Meningococcal ACWY Vaccine Aged Out N o longer eligible based on patient's age to complete this topic Meningococcal B Vacine Aged Out No lo nger eligible based on patient's age to complete this topic RSV Immunization Patients Un baldev 20 months Aged Out No longer eligible b ased on patient's age to complete this topic Varicella Vaccines Aged Out No longer eligible based on patient's age to complete this topic Care Teams Computer Software Engineer Relationship Specialty Start Date End Date Verito Gaytan MD [address] [place] [address] [place] PCP - General Internal Medicine 10/19/21
== END 2024-05-19 09:23 | disposition home or self-care (01) ==
PROVIDERS: PCP Internal Medicine; Visit Provider Orthopaedic Surgery
DX: M65.312 Trigger thumb, left thumb (principal); M79.642 Pain in left hand; T78.40XA Allergy, unspecified, initial encounter; M79.7 Fibromyalgia
CPT/HCPCS: 99214

== ENCOUNTER → 2024-05-19 08:40 | Outpatient (BNV) | payer MEDICARE, SELFPAY | PROVIDERS: Visit Provider Radiology Diagnostic Radiology | DX: M79.642 Pain in left hand (principal) | CPT/HCPCS: 73130 ==

== ENCOUNTER 2024-05-19 09:31 | Outpatient (REF) | payer MEDICARE, SELFPAY ==
--- NOTE | ~2024-05-19 | XR_ITS ---
EXAMINATION: XR HAND, LEFT CLINICAL INFORMATION: M79.642 - Pain in left hand COMPARISON: None available. TECHNIQUE: PA, lateral, and oblique views of the left hand. FINDINGS: No acute cortical disruption or malalignment. No lytic or blastic lesions. No subcutaneous emphysema. No metallic or radiopaque foreign body. There is preservation of the joint spaces. There is no subchondral cyst formation. XR/XR hand LT min 3V IMPRESSION: Normal left hand. Electronically signed by: Spenser García MD 05/19/2024 08:55 AM BIJAN MARIANO
--- OUTSIDE RECORDS SUMMARY | 2024-05-20 10:02 | XMS_ITS | Clinical Summary ---
Author Organization [facility] ity Address [address] [place] [address] Care Team Providers Care Beach Attendant Name Role Phone Verito Gaytan MD Primary Care Provider Surgical History Surgery Date Site/Laterality Comments SECTION PROCEDURE: [place] DELIVERY ONLY Medical History Medical History Date [...] age to complete this topic Care Teams Beach Attendant Relationship Specialty Start Date End Date Verito Gaytan MD [address] [place] [address] [place] PCP - General Internal Medicine 10/19/21
== END 2024-05-19 09:32 | disposition home or self-care (01) ==
LOC: HO.HOSX 09:31
PROVIDERS: Visit Provider Orthopaedic Surgery
DX: M79.642 Pain in left hand (principal); M65.312 Trigger thumb, left thumb; T78.40XA Allergy, unspecified, initial encounter; M79.7 Fibromyalgia
CPT/HCPCS: 73130; 99212

== ENCOUNTER 2024-07-08 11:01 | Day surgery (SDC) | payer MEDICARE, SELFPAY ==
[2024-07-07 10:13] VITALS: BMI 37.1
[2024-07-08 11:05] VITALS: BP 117/34; PULSE 56; RESP 18; TEMP 36.1; O2SAT 97
--- NOTE | 2024-07-08 13:52 | MHC.SHP ---
Pre-Procedural Eval Section A - 24 Hr Update-Section A only Date of Service: 07/08/24 The patient is an INPATIENT: No Changes since office visit: No Cold of Flu in the past 2 weeks, No New Medical Problems, No Changes in Medication and No Patient answered all questions The patient has been examined within 24 hours of the surgical procedure. The History & Physical has been completed within 30 days and I have reviewed it.: Yes Section B - Complete if H&P > 30 days Chief Complaint: Trigger thumb, left thumb Allergies: Allergies Allergy/AdvReac Type Severity Reaction Status Date / Time No Known Allergies Allergy Verified 05/19/24 08:59 Plan Diagnosis/Plan: Unchanged I have reviewed the history and physical and performed a pertinent physical examination on my patient. No changes have occurred unless specified. Time Spent With Patient Time: Total time managing care of this patient today ____ minutes.
--- NOTE | 2024-07-08 13:53 | W.PM.OPN ---
Operative Note Operative Note Date of Service: 07/08/24 Narrative: Operative Note Preop diagnosis: 1. Left trigger thumb Postop diagnosis: The same Procedure: 1. Left thumb A1 sara release Surgeon: Jeri Lombardo MD Monotype Setter: Jairo WALTERS Anesthesia: local block using 1% lidocaine with epinephrine Findings: No locking or catching after A1 sara release EBL: Less than 5 mL Tourniquet time: None Specimens: None Complications: None Disposition: Brought to recovery room in stable condition Plan: Follow-up for 10-14 days for wound check and suture removal Indications: The patient is 38 years old, with a left thumb trigger finger that has been unresponsive to nonoperative management. The risks and benefits of operative treatment including but not limited to risk of damage to blood vessels, nerves, tendons, infection, persistent pain, persistent symptoms, recurrence or possible need for additional surgery were discussed with the patient and the patient wishes to proceed with surgery. Procedure: Once consent was obtained a local block was performed in the preop area using a combination of 1% lidocaine with epinephrine. The patient was then brought back to the operating suite and placed on the operative table in supine position. The left upper extremity was prepped and draped in a standard surgical fashion. Once assured that we had a good block, a 1.5 cm oblique incision was made centered over the A1 sara of the left thumb . The incision was made through the skin to the subcutaneous tissues using a #15 blade. Careful dissection was made down to the level of the A1 sara using tenotomy scissors, with care being taken to protect the nearby neurovascular structures. A longitudinal incision was made in the A1 sara 1st using a #15 blade, then using tenotomy scissors under direct visualization. The A1 sara was noted to be thickened. Following our A1 sara release, we no longer saw any locking or catching of the digit with flexion and extension. Once satisfied with our A1 sara release the wound was copiously irrigated with normal saline and hemostasis was obtained with a brief period of local pressure. The skin edges were reapproximated with some 5.0 nylon suture material and a sterile dressing was applied. The patient appears to have tolerated the procedure well and with no complications. All digits were well vascularized at the conclusion of the case.
[2024-07-08 14:41] VITALS: BP 98/48; PULSE 51; RESP 16; O2SAT 96
== END 2024-07-08 14:46 | disposition home or self-care (01) ==
PROVIDERS: PCP Internal Medicine; Visit Provider Orthopaedic Surgery
PROC: (CPT 26055; principal; 2024-07-08 12:50)
DX: M65.312 Trigger thumb, left thumb (principal); M79.645 Pain in left finger(s); M79.7 Fibromyalgia; E78.00 Pure hypercholesterolemia, unspecified; I10 Essential (primary) hypertension; Z87.891 Personal history of nicotine dependence; Z98.890 Other specified postprocedural states
CPT/HCPCS: 26055; J0171; J2003

== ENCOUNTER → 2024-07-08 11:01 | Outpatient (BNV) | payer MEDICARE, SELFPAY | PROVIDERS: PCP Internal Medicine; Visit Provider Orthopaedic Surgery | DX: M65.312 Trigger thumb, left thumb (principal) | CPT/HCPCS: 26055 ==

== ENCOUNTER 2024-07-12 11:15 | Outpatient (AMB) | payer MEDICARE, SELFPAY ==
--- NOTE | 2024-07-06 09:11 | MHC.OFFVIS ---
Intake Visit Reasons: US follow up/EMB/repeat pap Allergies No Known Allergies Allergy (Verified 05/19/24 08:59) HPI Comments Details: Presenting for follow-up. Pap smear was unsatisfactory, HPV negative Pelvic ultrasound showed the following: Impression: 1. Normal uterus. 2. Normal thickness endometrium homogeneous and well-defined. 3. Normal sonographic appearance right ovary. 4. Probable hemorrhagic cyst left ovary. Consider follow-up ultrasound in 6 or 12 weeks time. 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 Review of Systems Const All systems reviewed & are unremarkable except as noted in HPI and below Reports as per HPI and Reports no additional complaints GI Reports no additional complaints Reports no additional complaints Assessment & Plan Assessment & Plan (1) Abnormal uterine bleeding (AUB): Code(s): N93.9 - Abnormal uterine and vaginal bleeding, unspecified Category: Medical Plan: EMB done, see procedure note (2) Hemorrhagic cyst of ovary: Code(s): N83.209 - Unspecified ovarian cyst, unspecified side Category: Medical Plan: Discussed with the patient the results of the ultrasound showing possible hemorrhagic cyst, repeat ultrasound ordered. Instructions given the patient to schedule ultrasound and a follow-up appointment within 2 weeks (3) Unsatisfactory cervical Papanicolaou smear: Code(s): R87.615 - Unsatisfactory cytologic smear of cervix Category: Medical Plan: Pap repeated Orders: Orders US pelvic and transvaginal Today N83.209 - Unspecified ovarian cyst, unspecified side Coding Diagnoses Abnormal uterine bleeding (AUB) N93.9 Hemorrhagic cyst of ovary N83.209 Unsatisfactory cervical Papanicolaou smear R87.615
--- NOTE | 2024-07-12 11:27 | MHC.OFFVIS ---
Intake Visit Reasons: US follow up/EMB/repeat pap Tool Radial Drill Press Set Up Operator: Tool Radial Drill Press Set Up Operator Present (Gloria) Allergies No Known Allergies Allergy (Verified 07/12/24 11:27) Is last menstrual period known: Yes Last menstrual period: 07/07/24 HPI Comments Details: Presenting for follow-up Last Pap smear in 03/30 was unsatisfactory due to insufficient squamous cells, HPV negative Pelvic ultrasound showed the following: Anteverted uterus, normal size and echotexture, measuring 11.3 x 3.2 x 3.5 cm. Well defined endometrium, measuring 4.0 mm in thickness. The right ovary measures, 3.4 x 1.6 x 1.6 cm. Normal sonographic appearance right ovary. The left ovary measures, 4.1 x 3.1 x 4.6 cm. Probable hemorrhagic cyst measuring 3.3 x 2.6 x 2.4 cm. Normal color Doppler with normal ovarian arterial spectral tracing. No adnexal masses or fluid collections. 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 hysteroscopy D&C) & the risks were discussed with the patient including but not limited: pain, uterine perforation, bleeding, infection, possible injury to bladder, bowel, ureter, possible need for blood transfusion with all its possible risks. The patient verbalized understanding all questions answered and signed consent. Urine test done in the office was negative The patient was placed into the dorsal lithotomy position; a speculum was inserted in the vagina. Using aseptic technique for the procedure, the cervix was cleansed with Betadine. The anterior lip of the cervix was grasped with a single tooth tenaculum. The uterus was sounded to 7 cm with a 4 mm Pipelle was used. Tissues samples were obtained and placed in formalin, in a patient labeled container and sent to the pathology department. At the end of the procedure, there was minimal bleeding noted The patient tolerated the procedure well and was discharged in good condition with the following instructions: Nothing in the vagina until the bleeding stops. No sex until the bleeding stops, to call if any of the following occurs: fever (>100.4), flu-like symptoms, abdominal pain, heavy bleeding, four smelling vaginal discharge. The patient was instructed to schedule a Follow up appointment in 2 weeks to discuss pathology results of the biopsy and treatment options. This note was generated with a voice recognition program. Some errors may have been overlooked during the review of this note. Sometimes these errors may affect the content or meaning of a given sentence. 23494-[id number] Biopsy Assessment & Plan Assessment & Plan (1) Abnormal uterine bleeding (AUB): Code(s): N93.9 - Abnormal uterine and vaginal bleeding, unspecified Category: Medical Plan: EMB done, see procedure note (2) Hemorrhagic cyst of ovary: Code(s): N83.209 - Unspecified ovarian cyst, unspecified side Category: Medical Plan: Discussed with the patient the finding on ultrasound showing probable hemorrhagic cyst, recommended repeat Pap ultrasound, ordered. Instructions given the patient is schedule an ultrasound and a follow-up appointment. (3) Unsatisfactory cervical Papanicolaou smear: Code(s): R87.615 - Unsatisfactory cytologic smear of cervix Category: Medical Plan: Pap smear repeated Orders: Orders AMB Endometrial Biopsy Today N93.9 - Abnormal uterine and vaginal bleeding, unspecified US pelvic and transvaginal Today N83.209 - Unspecified ovarian cyst, unspecified side Coding Level of Care Code Est Pt Level 3 (89581) Procedure Only Diagnoses Abnormal uterine bleeding (AUB) N93.9 Hemorrhagic cyst of ovary N83.209 Unsatisfactory cervical Papanicolaou smear R87.615 CPT Codes Endometrial Biopsy - CPT: 96732-Eqfkchbczmt Biopsy ([id number])
--- OUTSIDE RECORDS SUMMARY | 2024-07-12 13:31 | XMS_ITS | Clinical Summary ---
Author Organization [facility] ity Address [address] [place] [address] Care Team Providers Care Air Traffic Control Supervisor Name Role Phone Verito Gaytan MD Primary Care Provider [phone] Surgical History Surgery Date Site/Laterality Comments SECTION [...] Influencers of Health Screening 03/06/2022 COVID-19 Vaccine (2023-2 5 season) 2023 Influenza Vaccine (Season Ended) 2024 HIB Vaccines Aged Out No longer eligi [...] age to complete this topic Care Teams Air Traffic Control Supervisor Relationship Specialty Start Date End Date Verito Gaytan MD [address] [place] [address] [place] PCP - General Internal Medicine 10/19/21
== END 2024-07-12 11:48 | disposition home or self-care (01) ==
LOC: HO.HWS 11:15
PROVIDERS: PCP Internal Medicine; Visit Provider Obstetrics & Gynecology
DX: N83.202 Unspecified ovarian cyst, left side (principal); N93.9 Abnormal uterine and vaginal bleeding, unspecified; R87.615 Unsatisfactory cytologic smear of cervix; Z32.02 Encounter for pregnancy test, result negative
CPT/HCPCS: 58100; 99213

== ENCOUNTER 2024-07-12 11:15 | Outpatient (REF) | payer MEDICARE, SELFPAY ==
--- OUTSIDE RECORDS SUMMARY | 2024-07-12 14:16 | XMS_ITS | Clinical Summary ---
Author Organization [facility] ity Address [address] [place] [address] Care Team Providers Care Skip Hoist Operator Name Role Phone Verito Gaytan MD Primary Care Provider [phone] Surgical History Surgery Date Site/Laterality Comments SECTION PROCEDURE: [place] DELIVERY ONLY Medical History Medical History Date [...] age to complete this topic Care Teams Skip Hoist Operator Relationship Specialty Start Date End Date Verito Gaytan MD [address] [place] [address] [place] PCP - General Internal Medicine 10/19/21
== END 2024-07-12 11:16 | disposition home or self-care (01) ==
LOC: HO.LNP 11:15
PROVIDERS: PCP Internal Medicine; Visit Provider Obstetrics & Gynecology
DX: N93.9 Abnormal uterine and vaginal bleeding, unspecified (principal); N83.202 Unspecified ovarian cyst, left side; R87.615 Unsatisfactory cytologic smear of cervix; Z32.02 Encounter for pregnancy test, result negative
CPT/HCPCS: 58100; 81025; 88175; 88305; 99212

== ENCOUNTER 2024-07-18 13:40 | Emergency (ER) | payer MEDICARE, SELFPAY ==
--- NOTE | ~2024-07-18 | US_ITS ---
CLINICAL HISTORY: calf pain Venous duplex ultrasound left lower extremity COMPARISON: None FINDINGS: The visualized deep veins are fully compressible with normal Doppler color flow and spectral tracings. No popliteal cyst. IMPRESSION: 1. Negative for left lower extremity deep vein thrombosis. This document has been electronically signed by: Jerel Cuevas MD on 07/18/2024 16:07:59
[2024-07-18 13:56] VITALS: BP 120/45; PULSE 71; RESP 18; TEMP 36.7; O2SAT 98; BMI 41.9
--- NOTE | 2024-07-18 13:56 | ED_ITS ---
HPI - General Adult General Chief complaint: Extremity Injury, Lower Stated complaint: leg pain Time Seen by Provider: 07/18/24 15:18 History of Present Illness ED Provider: Chas SHANKAR narrative: The patient is a 38-year-old female who had an endometrial biopsy by Dr. Sanchez gynecology on July 12, one week ago. The patient says that the discomfort at the time of the procedure was more pronounced than on previous similar occasions. Over the last few days she has had some pain in her left leg. She seems to indicate that she has pain in the left buttock which goes down the back of the left leg and which she feels primarily in the left calf. She has not had any fever, sweats, chills. She has not had any vaginal discharge or bleeding. She does have some pain in her left lower back. Related Data Home Medications ?Medication ?Instructions ?Recorded ?Confirmed albuterol sulfate 90 mcg/actuation 2 puff inhalation QID 02/04/22 08/25/23 aerosol inhaler amlodipine 5 mg tablet 5 mg PO DAILY 02/04/22 08/25/23 atorvastatin 80 mg tablet 80 mg PO DAILY 02/04/22 08/25/23 beclomethasone dipropionate 80 0 mcg inhalation 02/04/22 mcg/actuation HFA breath activated aerosol (Qvar RediHaler) metoprolol succinate 50 mg 50 mg PO DAILY 02/04/22 08/25/23 tablet,extended release 24 hr pregabalin 150 mg capsule 150 mg PO TID 02/04/22 08/25/23 Previous Rx's ?Medication ?Instructions ?Recorded oxycodone-acetaminophen 5 mg-325 1 tab PO Q6H PRN pain, severe #5 07/08/24 mg tablet tabs ibuprofen 600 mg tablet 600 mg PO Q6H PRN pain #14 tabs 07/18/24 Allergies Allergy/AdvReac Type Severity Reaction Status Date / Time No Known Allergies Allergy Verified 07/18/24 13:58 Review of Systems 2 Review of Systems: Yes all other systems are reviewed and are negative PMFSH Past Medical History Medical History Fibromyalgia High cholesterol High blood pressure Surgical History Hx of dilation and curettage Hx of section Social History Social History Patient Tobacco Use Status: Former Tobacco user Substance Use Type: Marijuana Advance Directives: No Advance Directives Information Provided: No Current occupational status: employed 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 The patient does not appear obviously toxic or in acute distress. HENMT Other: Face is symmetrical. Mucous membranes moist. Eyes General: appearance normal, both eyes and all related structures Neck Neck: Yes normal visual inspection and Yes full ROM Resp Effort & Inspection: normal respiratory effort Auscultation: clear to auscultation bilaterally Cardio Rate: regular rate Rhythm: regular rhythm Heart sounds: S1 normal heart sound present and S2 normal heart sound present GI Other: The abdomen was soft and did not seem particularly tender. Back/Spine/Pelvis Other: No obvious abnormality on inspection of the back. No CVA percussion tenderness. Skin Other: The skin is dry and unremarkable Neuro Other: The patient is awake and alert with a normal mental status. She seems to have symmetrical reflexes of the knees in the ankles. Toes go down bilaterally. She is able to walk without footdrop. Extrem Other: No obvious asymmetry to the calves. No edema. No definite tenderness. Course Course Course Narrative: This is a rapid medical exam performed by Zen Wolfe NP: Additional HPI, ROS, PE not included below will be deferred to primary provider. 07/18/24 13:56 Patient is a 38-year-old female with history of AUB, fibromyalgia had enometrial biopsy earlier this week, afterwards she has continued to have left leg pain and weakness. States pain is primarily to her left calf, worse with ambulation. Called Dr. Sanchez who referred patient to the ED. Plan: labs, u/s Medications Administered Discontinued Medications Generic Name Dose Route Start Last Admin Trade Name Freq PRN Reason Stop Dose Admin Ketorolac Tromethamine 30 mg 07/18/24 16:04 07/18/24 16:18 Ketorolac Tromethamine 30 Mg/Ml Vial IM 07/18/24 16:05 30 mg ONCE ONE Administration Medical Decision Making Medical Decision Making [facility] Narrative: The patient is a 38-year-old woman who presents for evaluation of pain in her left leg that seems to extend from the left buttock and lower back down to the back of the leg towards the foot. She feels the discomfort primarily in the calf. I think she had some concern that these symptoms could be related to the procedure that she had with an endometrial biopsy a week ago. My impression is that the description of the symptoms sound more like sciatica than anything that I would consider a complication of an endometrial biopsy. The patient had a negative Doppler ultrasound of the left leg. There was no DVT. The patient's vital signs are unremarkable. On laboratory testing the patient has a white count of 12.1 but this seems to be similar to previous values for this patient. The differential on her white count is entirely normal. Other labs are unremarkable. I explained to the patient that I thought that her symptoms sounded more like sciatica than a complication of her recent procedure. I think she may be discharged. She will be advised to use ibuprofen. She should follow up with her PCP and with Dr. Sanchez. Lab Data 07/18/24 13:59 07/18/24 13:59 Labs: Lab Results 07/18/24 Range/Units 13:59 WBC 12.1 H (4.8-10.8) X10*3/uL RBC 3.90 L (4.20-5.50) X10*6/uL Hgb 10.5 L (12.0-16.0) g/dl Hct 32.9 L (37.0-47.0) % MCV 84.4 (80.0-98.0) fL MCH 26.9 L (27.0-33.0) pg MCHC 31.9 (31.0-35.0) g/dl RDW 14.8 (11.0-16.0) % Plt Count 378 (160-400) X10*3/uL MPV 10.3 (9.4-12.3) fL Immature Gran % (Auto) 0.2 (0.0-0.4) % Neut % (Auto) 58.1 (45-73) % Lymph % (Auto) 32.0 (20-40) % [place] % (Auto) 7.2 (2-11) % Eos % (Auto) 1.8 (0-4) % Baso % (Auto) 0.7 (0-2) % Lymph # (Auto) 3.9 (1.2-4.9) X10*3/uL [place] # (Auto) 0.9 (0.1-1.2) X10*3/uL Eos # (Auto) 0.2 (0.0-0.4) X10*3/uL Baso # (Auto) 0.1 (0.0-0.2) X10*3/uL Abs Immat Gran (auto) 0.03 (0.00-0.03) X10*3/uL Absolute Neuts (auto) 7.0 (2.0-8.3) x10*3/uL Absolute Nucleated RBC 0.000 (0.0-0.012) X10*3/uL Nucleated RBC % (auto) 0.0 (0.0-0.2) /100WBC PT 12.2 (10.9-12.4) SEC INR 1.0 (0.9-1.1) Sodium 142 (135-145) mmol/L Potassium 3.6 (3.3-5.1) mmol/L Chloride 109 H (96-108) mmol/L Carbon Dioxide 24 (22-29) mmol/L Anion Gap 13 (12-20) BUN 12 (9-16) mg/dL Creatinine 0.58 (0.5-1.4) mg/dL Estim Creat Clear Calc 136.1 Estimated GFR > 60 Random Glucose 75 (60-115) mg/dL Calcium 8.9 (8.4-10.2) mg/dL Total Bilirubin 0.3 (0.0-1.0) mg/dL AST 42 H (5-31) U/L ALT 17 (0-31) U/L Alkaline Phosphatase 60 (39-117) U/L Total Protein 7.2 (6.5-8.0) g/dL Albumin 4.1 (3.5-5.0) g/dL Beta HCG, Quant < 2 mIU/mL Discharge Plan Discharge Clinical Impression: Left sided sciatica Patient Disposition: Home, Self-Care Instructions: Sciatica (ED) Additional Instructions: Your testing today shows no signs of a blood clot in your left leg. Your laboratory testing is likewise reassuring. I think that your symptoms seem more consistent with a condition called sciatica than with any complication of opal Sanchez's procedure. Sciatica is an irritation of a nerve that comes out with the spine in the lower back and goes down the back of the leg. I would recommend that you use ibuprofen (prescribed) and also acetaminophen (Tylenol) for discomfort. Avoid activities which exacerbate your pain. Please follow up soon with your regular doctor to discuss this further. Also stay in touch with Dr. Sanchez. Return to the emergency room if significantly worse. Prescriptions: New ibuprofen 600 mg tablet 600 mg PO Q6H PRN (Reason: pain) Qty: 14 0RF No Action oxycodone-acetaminophen 5-325 mg tablet 1 tab PO Q6H PRN (Reason: pain, severe) Qty: 5 0RF Rx Instructions: Partial Fill upon patient request. pregabalin 150 mg capsule 150 mg PO TID amlodipine 5 mg tablet 5 mg PO DAILY metoprolol succinate 50 mg tablet extended release 24 hr 50 mg PO DAILY atorvastatin 80 mg tablet 80 mg PO DAILY Qvar RediHaler 80 mcg/actuation HFA aerosol breath activated 0 mcg inhalation albuterol sulfate 90 mcg/actuation HFA aerosol inhaler 2 puff inhalation QID Referrals: Verito Gaytan MD [Primary Care Provider] - (left sided sciatica) Interventions: ED Discharge Assessment Last Done: 07/18/24 17:58 Discharge Date/Time: 07/18/24 17:58 Print Language: Ukrainian
[2024-07-18 15:09] LABS: MANUAL DIFF FLAG NO
[2024-07-18 15:12] LABS: Basophils Absolute Auto 0.1 X10*3/uL (0.0-0.2); Basophils Percent Auto 0.7 % (0-2); Eosinophils Absolute Auto 0.2 X10*3/uL (0.0-0.4); Eosinophils Percent Auto 1.8 % (0-4); Hematocrit 32.9 % (37.0-47.0); Hemoglobin 10.5 g/dl (12.0-16.0); Imm Gran Abs Auto 0.03 X10*3/uL (0.00-0.03); Imm Gran Pct Auto 0.2 % (0.0-0.4); Lymphocytes Absolute Auto 3.9 X10*3/uL (1.2-4.9); Mean Corpuscular HGB Conc 31.9 g/dl (31.0-35.0); Mean Corpuscular Hemoglobin 26.9 pg (27.0-33.0); Mean Corpuscular Volume 84.4 fL (80.0-98.0); Mean Platelet Volume 10.3 fL (9.4-12.3); Monocytes Absolute Auto 0.9 X10*3/uL (0.1-1.2); Monocytes Percent Auto 7.2 % (2-11); Neutrophils Percent Auto 58.1 % (45-73); Platelet Count 378 X10*3/uL (160-400); Red Cell Distribution Width 14.8 % (11.0-16.0); White Blood Count 12.1 X10*3/uL (4.8-10.8)
[2024-07-18 15:22] LABS: Prothrombin Time 12.2 SEC (10.9-12.4)
[2024-07-18 15:40] LABS: Alanine Aminotransferase 17 U/L (0-31); Albumin Level 4.1 g/dL (3.5-5.0); Anion Gap 13 (12-20); Aspartate Amino Transferase 42 U/L (5-31); Bilirubin Total 0.3 mg/dL (0.0-1.0); Blood Urea Nitrogen 12 mg/dL (9-16); Calcium 8.9 mg/dL (8.4-10.2); Carbon Dioxide 24 mmol/L (22-29); Chloride 109 mmol/L (96-108); Creatinine Clr Calc Pharmacy 136.1; Estimated Glomerular Filt Rate > 60; Glucose Random 75 mg/dL (60-115); HCG Quantitative < 2 mIU/mL; Potassium 3.6 mmol/L (3.3-5.1); Sodium 142 mmol/L (135-145); Total Protein 7.2 g/dL (6.5-8.0)
[2024-07-18 16:12] LABS: Alkaline Phosphatase 60 U/L (39-117)
[2024-07-18] MEDS: Ketorolac Tromethamine 30 MG/ML VIAL IM (16:18)
[2024-07-18 16:28] VITALS: BP 101/49; PULSE 70; RESP 20; TEMP 36.7; O2SAT 99
[2024-07-18 17:58] VITALS: BP 101/49; PULSE 70; RESP 20; TEMP 36.7; O2SAT 99
== END 2024-07-18 17:58 | disposition home or self-care (01) ==
PROVIDERS: Registered Nurse Emergency; Emergency Provider Emergency Medicine; PCP Internal Medicine
DX: M54.32 Sciatica, left side (principal); M79.662 Pain in left lower leg; M54.50 Low back pain, unspecified
CPT/HCPCS: 36415; 80053; 84702; 85025; 85610; 93971; 96372; 99283; 99284; J1885

== ENCOUNTER → 2024-07-18 13:59 | Outpatient (BNV) | payer MEDICARE, SELFPAY | PROVIDERS: Emergency Provider Emergency Medicine; PCP Internal Medicine; Visit Provider Radiology Diagnostic Radiology | DX: M79.662 Pain in left lower leg (principal) | CPT/HCPCS: 93971 ==

== ENCOUNTER 2024-07-23 09:29 | Outpatient (AMB) | payer MEDICARE, SELFPAY ==
--- NOTE | 2024-07-23 09:32 | A.OFFVIS_ITS ---
Intake Visit Reasons: PO-Lt Thumb Trigger 07/08/24 Intake Note: Meliza is a 38 year old right hand dominant female who presents today for a post operative visit s/p left thumb A1 sara release DOS: 07/08/[address] Jeri Lombardo. Patient reports she is having some numbness and discomfort in the left thumb. She states her trigger finger has resolved. Patient has concern of her right hand numbness, says this has been going on since before procedure and is gradually worsening. Allergies No Known Allergies Allergy (Verified 07/23/24 09:40) HPI HPI PO-Lt Thumb Trigger 07/08/24: Details: Meliza is a 38 year old right hand dominant female who presents today for a post operative visit s/p left thumb A1 sara release DOS: 07/08/[address] Jeri Lombardo. Patient reports she is having some numbness and discomfort in the left thumb. She states her trigger finger has resolved. Patient has concern of her right hand numbness, says this has been going on since before procedure and is gradually worsening. 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 She underwent her second trigger thumb surgery within the last year. Postoperatively, she describes mild soreness at the surgical site and some stiffness in thumb movement. Exercises involving thumb flexion with assistance from the other hand are being performed daily to alleviate stiffness. The patient also has a prior surgical history of bilateral carpal tunnel release, undergone last year to alleviate previously constant hand numbness. Some mild numbness and tingling persist, primarily in the fingertips, yet she has not undergone any recent nerve conduction studies to further evaluate these symptoms. Review of Systems - Musculoskeletal: Reports soreness and stiffness at the thumb post-surgery. - Neurological: Reports mild numbness and tingling in the fingertips. Systems reviewed and are negative except as per HPI and below Physical Exam Patient is alert, oriented, and in no acute distress. Neuro: Slightly diminished sensation of the tips of all digits of the left hand at this time Vascular: Cap refill brisk Pain: Very mild tenderness to palpation about incision site over A1 sara of the left thumb ROM: Patient is able to make a closed fist and extend all digits of the left hand fully No further locking or catching of the left thumb Skin: No lacerations or abrasions. General: No ecchymosis, erythema, or evidence of infection. Psych: Appears grossly normal Affect normal Attitude cooperative Plan The follow-up plan includes continuing daily exercises to alleviate stiffness while avoiding heavy hand use and water immersion for a few weeks. Monitoring for infection and pain at the surgical site is essential. If persistent numbness and tingling worsen, an EMG may be ordered. A referral to occupational therapy remains optional based on recovery progress. Patient was informed and verbally consented to the use of an ambient scribe for clinic note documentation during this visit. Discussion Notes I discussed with the patient the positive appearance of the surgical site and emphasized the importance of continued exercises to improve thumb mobility. Benefits of restricting specific activities for the next few weeks to facilitate healing were highlighted. The option for an EMG was discussed for ongoing numbness and tingling, though deemed unnecessary immediately. The patient was advised to contact the office for further evaluation if symptoms deteriorate. We agreed on the possibility of occupational therapy should the stiffness persist. Patient Instructions - Continue exercises to improve thumb mobility. - Avoid immersing the hand in water for one week. - Avoid activities involving hand use such as gardening or lifting heavier than a cell phone for the next two weeks. - Monitor the surgical site for increased pain, swelling, or redness. - Contact the office if symptoms of numbness and tingling worsen. - No need for follow-up unless symptoms change. - You can remove the steristrips if they do not fall off within five days. Coding Level of Care Code Global (39378) Diagnoses Trigger thumb, left thumb M65.312
--- OUTSIDE RECORDS SUMMARY | 2024-07-23 09:59 | XMS_ITS | Clinical Summary ---
Author Organization [facility] ity Address [address] [place] [address] Care Team Providers Care Pulp Piler Name Role Phone Verito Gaytan MD Primary Care Provider [phone] Surgical History Surgery Date Site/Laterality Comments SECTION PROCEDURE: [place] DELIVERY ONLY Medical History Medical History Date [...] age to complete this topic Meningococcal B Vaccine Aged Out No l onger eligible based on patient's age to complete this topic RSV Immunization Patients Un baldev 20 months Aged Out No longer eligible b ased on patient's age to complete this topic Varicella Vaccines Aged Out No longer eligible based on patient's age to complete this topic Care Teams Pulp Piler Relationship Specialty Start Date End Date Verito Gaytan MD [address] [place] [address] [place] PCP - General Internal Medicine 10/19/21
== END 2024-07-23 09:53 | disposition home or self-care (01) ==
LOC: HO.HOS 09:29
PROVIDERS: PCP Internal Medicine
DX: M65.312 Trigger thumb, left thumb (principal)
CPT/HCPCS: 99024

== ENCOUNTER → 2024-07-23 09:29 | Outpatient (BNVA) | payer MEDICARE, SELFPAY | PROVIDERS: PCP Internal Medicine | DX: Z47.89 Encounter for other orthopedic aftercare (principal); Z98.890 Other specified postprocedural states | CPT/HCPCS: 99212 ==

== ENCOUNTER 2024-07-27 12:45 | Outpatient (REF) | payer MEDICARE, SELFPAY ==
[2024-07-27 14:26] LABS: Alanine Aminotransferase 19 U/L (0-31); Albumin Level 4.1 g/dL (3.5-5.0); Alkaline Phosphatase 55 U/L (39-117); Anion Gap 7 (12-20); Aspartate Amino Transferase 26 U/L (5-31); Bilirubin Total 0.3 mg/dL (0.0-1.0); Blood Urea Nitrogen 9 mg/dL (9-16); Calcium 8.5 mg/dL (8.4-10.2); Carbon Dioxide 25 mmol/L (22-29); Chloride 111 mmol/L (96-108); Estimated Glomerular Filt Rate > 60; Glucose Random 100 mg/dL (60-115); Potassium 3.9 mmol/L (3.3-5.1); Sodium 139 mmol/L (135-145); Total Protein 6.9 g/dL (6.5-8.0)
[2024-07-27 14:31] LABS: Estimated Average Glucose 120 mg/dL; Hemoglobin A1C 115.4252 umol/L; Hemoglobin A1c % 5.8 % (<6.0); Total Hemoglobin (HGBA1C) 2868.2837 umol/L
--- OUTSIDE RECORDS SUMMARY | 2024-07-27 15:08 | XMS_ITS | Clinical Summary ---
Author Organization [facility] ity Address [address] [place] [address] Care Team Providers Care Gear Machinist Name Role Phone Verito Gaytan MD Primary Care Provider [phone] Surgical History Surgery Date Site/Laterality Comments SECTION PROCEDURE: [place] DELIVERY ONLY Medical History Medical History Date [...] age to complete this topic Care Teams Gear Machinist Relationship Specialty Start Date End Date Verito Gaytan MD [address] [place] [address] [place] PCP - General Internal Medicine 10/19/21
== END 2024-07-27 12:46 | disposition home or self-care (01) ==
LOC: HO.10HDL 12:45
PROVIDERS: Visit Provider Internal Medicine
DX: E78.00 Pure hypercholesterolemia, unspecified (principal); M51.16 Intervertebral disc disorders with radiculopathy, lumbar region; M70.62 Trochanteric bursitis, left hip; R73.01 Impaired fasting glucose
CPT/HCPCS: 36415; 80053; 83036

== ENCOUNTER 2024-08-05 15:27 | Outpatient (REF) | payer MEDICARE, SELFPAY ==
--- NOTE | ~2024-08-05 | US_ITS ---
EXAMINATION: US PELVIS TRANSABDOMINAL AND TRANSVAGINAL HISTORY: N83.209 - Unspecified ovarian cyst, unspecified side COMPARISON: Comparison is made with the prior examination dated 04/06/2024. TECHNIQUE: Transabdominal and endovaginal real-time 2D garza-scale ultrasound was performed. FINDINGS: Uterus: The uterus is normal in size, measuring 8.4 x 3.8 x 4.8 cm. Myometrium has a normal echotexture. No fibroids are identified. Endometrium: The endometrial stripe measures 7 mm in thickness. Right ovary: The right ovary measures 4.5 x 2.0 x 1.9 cm. The right ovary is normal in size and echotexture. Left ovary: The left ovary measures 2.9 x 1.3 x 1.8 cm. The left ovary is normal in size and echotexture. The previously seen probable hemorrhagic cyst has resolved. Pelvic fluid: none. US/US pelvic and transvaginal IMPRESSION: Unremarkable pelvic ultrasound. The previously seen left ovarian hemorrhagic cyst has resolved. Electronically signed by: Pete Paul MD 08/06/2024 07:41 AM EDT
--- OUTSIDE RECORDS SUMMARY | 2024-08-05 17:13 | XMS_ITS | Clinical Summary ---
Author Organization [facility] ity Address [address] [place] [address] Care Team Providers Care Telephone Ad Taker Name Role Phone Verito Gaytan MD Primary Care Provider [phone] Surgical History Surgery Date Site/Laterality Comments SECTION PROCEDURE: [place] DELIVERY ONLY Medical History Medical History Date [...] age to complete this topic Care Teams Telephone Ad Taker Relationship Specialty Start Date End Date Verito Gaytan MD [address] [place] [address] [place] PCP - General Internal Medicine 10/19/21
== END 2024-08-05 15:28 | disposition home or self-care (01) ==
LOC: HO.US 15:27
PROVIDERS: PCP Internal Medicine; Visit Provider Obstetrics & Gynecology
DX: N83.209 Unspecified ovarian cyst, unspecified side (principal)
CPT/HCPCS: 76830; 76856

== ENCOUNTER → 2024-08-05 15:29 | Outpatient (BNV) | payer MEDICARE, SELFPAY | PROVIDERS: PCP Internal Medicine; Visit Provider Radiology Diagnostic Radiology | DX: N83.202 Unspecified ovarian cyst, left side (principal) | CPT/HCPCS: 76830; 76856 ==

== ENCOUNTER 2024-09-16 08:37 | Outpatient (AMB) | payer MEDICARE, SELFPAY ==
--- NOTE | 2024-09-16 08:43 | A.OFFVIS_ITS ---
Intake Visit Reasons: EMB US follow up Accompanied by: Spouse Allergies No Known Allergies Allergy (Verified 09/16/24 08:45) HPI Comments Details: The patient is presenting for follow-up to discuss the results of her abnormal uterine bleeding workup and options of treatment. The following workup was done.: H&H= 10.5/32.9 hCG, GC and chlamydia were negative. Endometrial biopsy pathology showed the following: Endometrium, biopsy: Proliferative endometrium with patchy mucinous metaplasia; no atypia or hyperplasia identified Co testing was done was negative. 08/06/2024 Pelvic ultrasound showed the following: Uterus: The uterus is normal in size, measuring 8.4 x 3.8 x 4.8 cm. Myometrium has a normal echotexture. No fibroids are identified. Endometrium: The endometrial stripe measures 7 mm in thickness. Right ovary: The right ovary measures 4.5 x 2.0 x 1.9 cm. The right ovary is normal in size and echotexture. Left ovary: The left ovary measures 2.9 x 1.3 x 1.8 cm. The left ovary is normal in size and echotexture. The previously seen probable hemorrhagic cyst has resolved. 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 q.d. recommended the patient Explained to the patient the finding on EMB showing patchy mucinous metaplasia, explained to the patient the association between complex mucinous metaplasia and possible endometrial pathology including hyperplasia and/or malignancy , recommended repeat EMB in 3-months it instructions given the patient is schedule EMB appointment within 3 months. Discussed with the patient the results of the work up done and options of hema tment including Lysteda, control pills, Mirena IUD, endometrial ablation and hysterectomy. All pros, cons, risks and benefits if each option was discussed with the patient and the patient decided to go ahead with Mirena IUD so a more detailed discussion about it was conducted including mechanism of action, risks (uterine perforation, infection, injury to bladder, bowel, displacement, and others) benefits (hypo menorrhea, amenorrhea, ...). GC/CT were taken and the patient was instructed to schedule Mirena IUD insertion on day 1-5 of next cycle . All questions answered, the patient verbalized understanding (2) Hemorrhagic cyst of ovary: Code(s): N83.209 - Unspecified ovarian cyst, unspecified side Category: Medical Plan: Discussed with the patient ultrasound findings showing the previously identified complex cyst has resolved. The patient was instructed to call if symptoms recur. All questions were answered the patient verbalized understanding. Orders: Orders MM tomosynthesis screening BI Today Z12.31 - Encounter for screening mammogram for malignant neoplasm of breast Coding Level of Care Code Est Pt Level 3 (33856) Diagnoses Abnormal uterine bleeding (AUB) N93.9 Hemorrhagic cyst of ovary N83.209
--- OUTSIDE RECORDS SUMMARY | 2024-09-16 08:52 | XMS_ITS | Clinical Summary ---
Author Organization [facility] ity Address [address] [place] [address] Care Team Providers Care Heating And Blending Supervisor Name Role Phone Verito Gaytan MD Primary Care Provider [phone] Surgical History Surgery Date Site/Laterality Comments SECTION PROCEDURE: [place] DELIVERY ONLY Medical History Medical History Date [...] age to complete this topic Care Teams Heating And Blending Supervisor Relationship Specialty Start Date End Date Verito Gaytan MD [address] [place] [address] [place] PCP - General Internal Medicine 10/19/21
== END 2024-09-16 09:01 | disposition home or self-care (01) ==
LOC: HO.HWS 08:37
PROVIDERS: PCP Internal Medicine; Visit Provider Obstetrics & Gynecology
DX: N93.9 Abnormal uterine and vaginal bleeding, unspecified (principal); N83.209 Unspecified ovarian cyst, unspecified side
CPT/HCPCS: 99213

== ENCOUNTER → 2024-09-16 08:37 | Outpatient (BNVA) | payer MEDICARE, SELFPAY | PROVIDERS: PCP Internal Medicine; Visit Provider Obstetrics & Gynecology | DX: Z71.2 Person consulting for explanation of examination or test findings (principal); N93.9 Abnormal uterine and vaginal bleeding, unspecified; N83.202 Unspecified ovarian cyst, left side | CPT/HCPCS: 99212 ==

== ENCOUNTER 2024-09-29 11:21 | Outpatient (AMB) | payer MEDICARE, SELFPAY ==
--- NOTE | 2024-09-29 11:27 | MHC.OFFVIS ---
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 The following possible complications were discussed with the patient: Intrauterine , Ectopic , Sepsis, Pelvic Infection, Irregular Bleeding and Amenorrhea, Perforation, Expulsion, Ovarian Cysts, Breast Cancer, The following adverse effects were discussed with the patient: alteration of menstrual bleeding pattern, including: unscheduled uterine bleeding decreased uterine bleeding increased scheduled uterine bleeding female genital tract bleeding ,amenorrhea , genital discharge , vulvovaginitis , breast pain , benign ovarian cyst and associated complications , dysmenorrhea , Gastrointestinal disorders abdominal/pelvic pain, headache/migraine , back pain , acne , depression Alternative options were discussed with the patient including but not limited: control pills, patch, NuvaRing, Depo-medroxyprogesterone acetate, Nexplanon, copper IUD, sterilization, vasectomy, others The procedure was explained in detail to patient , at the end patient signed the informed consent obtained. A no touch technique was used throughout the procedure. A speculum was placed into vagina and cervix was cleaned with betadine). A tenaculum was placed. A plastic sound was advanced through the external and internal os until it reached the fundus of the uterus, the depth was 8 cm. The sound was then withdrawn. The IUD was loaded in a sterile manner and advanced into position. The string was visualized and cut to 3 cm. Tenaculum site hemostatic. All instruments removed from vagina. Patient tolerated the procedure well. NO complications were noted. Patient was instructed to call for fever over 100.4, significant pain unrelieved by Motrin, IUD expulsion, heavy bleeding, or abnormal discharge. In addition, the following clinical considerations were discussed with the patient to call for removal: A stroke or heart attack ,Very severe or migraine headaches ,Unexplained fever ,Yellowing of the skin or whites of the eyes, as these may be signs of serious liver problems , or suspected , Pelvic pain or pain during sex ,HIV positive seroconversion in herself or her partner , Possible exposure to sexually transmitted infections Unusual vaginal discharge or genital sores , severe vaginal bleeding or bleeding that lasts a long time, or if she misses a menstrual period, Inability to feel Mirena's threads Counseled the patient that the IUD does not protect against STI's, recommended use of condoms for the first 7 days post insertion and explained to the patient that condoms are recommended for patients at risk for sexually transmitted infections. Informed the patient that Mirena IUD is FDA approved for 8 years for contraception for 5 years for the treatment of heavy menses Instructed the patient to schedule a Follow up appointment in 4 to 6 weeks following insertion. This note was generated with a voice recognition program. Some errors may have been overlooked during the review of this note. Sometimes these errors may affect the content or meaning of a given sentence. [id number] Insertion Procedure code (CPT) selection complete Office Meds Mirena 21 mcg/24 hr (up to 8 years) 52 mg intrauterine device Performing Provider: Yung Sanchez MD [place] [facility] [place] [facility] Documented (not given) by: Yung Sanchez MD on 09/29/24 11:41 Dose Route Admin Location Dispensed Lot Number Expiration Date [facility] Senior Cost Accountant 1 device intrauterine ea Total Dispensed Waste n/a n/a Results AMB Test Urine AMB Test Urine Negative Last Edit by Mitra Capps CMA on 09/29/24 11:33 Assessment & Plan Assessment & Plan (1) Encounter for insertion of Mirena IUD: Code(s): Z30.430 - Encounter for insertion of intrauterine contraceptive device Category: Medical Plan: Mirena IUD inserted, see procedure note Orders: Orders AMB IUD Insertion/Removal - Practice Supplied Today Z30.430 - Encounter for insertion of intrauterine contraceptive device AMB HCG Urine Test Today Z32.02 - Encounter for test, result negative Medications: New Mirena (levonorgestrel) 1 device intrauterine ONCE 1 ea 0RF Mirena IUD insertion NS Z30.430 - Encounter for insertion of intrauterine contraceptive device Coding Level of Care Code Procedure Only Diagnoses Encounter for insertion of Mirena IUD Z30.430 CPT Codes Details - CPT: 37147-BFJ Insertion ([id number])
--- OUTSIDE RECORDS SUMMARY | 2024-09-29 13:29 | XMS_ITS | Clinical Summary ---
Author Organization [facility] ity Address [address] [place] [address] Care Team Providers Care Executive Director Sheltered Workshop Name Role Phone Verito Gaytan MD Primary Care Provider [phone] Surgical History Surgery Date Site/Laterality Comments SECTION PROCEDURE: [place] DELIVERY ONLY Medical History Medical History Date [...] age to complete this topic Care Teams Executive Director Sheltered Workshop Relationship Specialty Start Date End Date Verito Gaytan MD [address] [place] [address] [place] PCP - General Internal Medicine 10/19/21
== END 2024-09-29 11:52 | disposition home or self-care (01) ==
LOC: HO.HWS 11:21
PROVIDERS: PCP Internal Medicine; Visit Provider Obstetrics & Gynecology
DX: Z30.430 Encounter for insertion of intrauterine contraceptive device (principal); Z32.02 Encounter for pregnancy test, result negative
CPT/HCPCS: 58300

== ENCOUNTER → 2024-09-29 11:21 | Outpatient (BNVA) | payer MEDICARE, SELFPAY | PROVIDERS: PCP Internal Medicine; Visit Provider Obstetrics & Gynecology | DX: Z30.430 Encounter for insertion of intrauterine contraceptive device (principal); E78.00 Pure hypercholesterolemia, unspecified; I10 Essential (primary) hypertension; F12.90 Cannabis use, unspecified, uncomplicated; Z87.891 Personal history of nicotine dependence | CPT/HCPCS: 58300; 81025; J7298 ==

== ENCOUNTER 2024-11-10 10:09 | Outpatient (AMB) | payer MEDICARE, SELFPAY ==
--- NOTE | 2024-11-10 10:19 | MHC.OFFVIS ---
Vital Signs 11/10/24 10:31 Height 5 ft Weight 214 lb BMI 41.8 Intake Visit Reasons: 6 month Follow up Process Maintenance Technician Required: No Information Interpreted: non-clinical & clinical Automatic Car Wash Attendant: Automatic Car Wash Attendant Present (Mitra HAYDEN) Accompanied by: Self / Same As Patient Allergies No Known Allergies Allergy (Verified 11/10/24 10:32) HPI Comments Details: The patient is presenting for IUD check after 1 st period following IUD insertion. 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 Review of Systems Const All systems reviewed & are unremarkable except as noted in HPI and below Physical Exam Vital Signs: BMI result Body Mass Index 41.8 General: Yes no CVA tenderness External Female Exam: normal external appearance and normal appearance of the urethra Speculum Exam - Vagina: normal appearance of the vagina, normal palpation, no lesions and no masses Speculum Exam - Cervix: normal appearance of the cervix, normal palpation, no lesions, no masses, nontender and Other cervical findings present (IUD string not seen) Bimanual exam- vagina & uterus: normal bimanual exam, normal palpation, uterine size normal, normal palpation, uterine shape normal, No Cervical tenderness present and non-tender Bimanual Exam- Adnexa, other: normal adnexae Back/Spine/Pelvis Back: no CVA tenderness Results AMB Test Urine AMB Test Urine Negative Last Edit by Mitra Capps CMA on 11/10/24 10:33 Results Reviewed Results Reviewed: Laboratory Last Values [facility] Clinic Negative 11/10/24 10:30 Assessment & Plan Assessment & Plan (1) IUD strings lost: Code(s): T83.32XA - Displacement of intrauterine contraceptive device, initial encounter Category: Medical Plan: UPT done in the office was negative. Discussed with the patient the finding on pelvic exam IUD string not seen, pelvic ultrasound ordered Will check the results if IUD is malpositioned will treat accordingly. Instructions given to patient to call in case of temperature above 100.4, severe cramping/pelvic pain, abnormal discharge or abnormal uterine bleeding or if she misses her menstrual cycle. Otherwise follow-up at her annual exam appointment. All questions answered, the patient verbalized understanding. Orders: Orders AMB HCG Urine Test Today Z32.02 - Encounter for test, result negative US pelvic and transvaginal Today Z30.430 - Encounter for insertion of intrauterine contraceptive device Coding Level of Care Code Est Pt Level 3 (30042) Diagnoses IUD strings lost T83.32XA
[2024-11-10 10:31] VITALS: BMI 41.8
--- OUTSIDE RECORDS SUMMARY | 2024-11-10 10:44 | XMS_ITS | Clinical Summary ---
Author Organization [facility] ity Address [address] [place] [address] Care Team Providers Care Pastry Wrapper Name Role Phone Verito Gaytan MD Primary Care Provider [phone] Surgical History Surgery Date Site/Laterality Comments SECTION PROCEDURE: [place] DELIVERY ONLY Medical History Medical History Date [...] Health Maintenance Due Date Last Done Comments Breast Cancer Screening 1984 DTaP,Tdap,and Td Vaccines (1 - Tdap) 10/07/2003 Hepatitis B Vaccines (1 of 3 - 19+ 3-dose series) 10/07/2003 Pneumococcal Vaccine: Pediat rics (0 to 5 Years) and At-Risk Patients (6 to 49 Years) (1 of 2 - PCV) 10/07/2003 Cervical Cancer Screening: P ap Smear 2005 Cholesterol Screening (Lipid Panel) 03/06/2022 HIV Screening 03/06/2022 Hepatitis C Screening 03/06/2022 Social Influencers of Health Screening 03/06/2022 COVID-19 Vaccine (1 - 2023-2 5 season) 2023 Depression Screening 04/07/2024 Influenza Vaccine (#1) 2024 HIB Vaccines Aged Out No longer [...] age to complete this topic Care Teams Pastry Wrapper Relationship Specialty Start Date End Date Verito Gaytan MD [address] [place] [address] PCP - General Internal Medicine 10/19/21
== END 2024-11-10 11:33 | disposition home or self-care (01) ==
LOC: HO.HWS 10:10
PROVIDERS: PCP Internal Medicine; Visit Provider Obstetrics & Gynecology
DX: T83.32XA Displacement of intrauterine contraceptive device, initial encounter (principal); Z32.02 Encounter for pregnancy test, result negative
CPT/HCPCS: 99213

== ENCOUNTER 2024-11-10 13:56 | Outpatient (REF) | payer MEDICARE, SELFPAY ==
--- NOTE | ~2024-11-10 | US_ITS ---
EXAMINATION: US PELVIS CLINICAL INFORMATION: IUD placement. COMPARISON: 08/05/2024. TECHNIQUE: Ultrasound of the pelvis is performed using both transabdominal and transvaginal transducers along with Doppler. Transvaginal imaging is performed due to inadequate visualization transabdominally. FINDINGS: Uterus: The uterus is anteverted and measures 9.9 x 3.7 x 5.4 cm. Volume = 103 0.6 mL. The double wall endometrial thickness is 7 mm. IUD is in place, well situated in appropriate position within the endometrial canal. The uterus is smooth in contour and has normal myometrial echogenicity. No visible fibroid. Adnexa: Both ovaries are visualized. There is normal color flow to the adnexa. There is no ovarian torsion. There is no pelvic ascites or fluid collection. Right ovary measures 1.9 x 2.5 x 2.0 cm. Volume = 7.1 mL. Normal sonographic appearance. Left ovary measures 3.3 x 2.5 x 2.1 cm. Volume = 9.1 mL. Normal sonographic appearance. US/US pelvic and transvaginal IMPRESSION: 1. Well-positioned IUD. 2. Normal pelvic ultrasound. Electronically signed by: Zaid Garcia MD 11/10/2024 02:45 PM EDT
== END 2024-11-10 13:57 | disposition home or self-care (01) ==
LOC: HO.US 13:56
PROVIDERS: PCP Internal Medicine; Visit Provider Obstetrics & Gynecology
DX: Z30.430 Encounter for insertion of intrauterine contraceptive device (principal); Z32.02 Encounter for pregnancy test, result negative; T83.32XA Displacement of intrauterine contraceptive device, initial encounter
CPT/HCPCS: 76830; 76856; 81025; 99212

== ENCOUNTER → 2024-11-10 13:59 | Outpatient (BNV) | payer MEDICARE, SELFPAY | PROVIDERS: PCP Internal Medicine; Visit Provider Radiology Diagnostic Radiology | DX: Z30.431 Encounter for routine checking of intrauterine contraceptive device (principal) | CPT/HCPCS: 76830; 76856 ==